=== PATIENT | female | born 1950 | race Caucasian/White ===

== ENCOUNTER → 2016-09-24 | Outpatient (CLI) | payer MEDICARE, OTHER ==
--- NOTE | 2016-09-24 22:15 | NM ---
EXAMINATION TYPE: NM hepatobiliary w EF DATE OF EXAM: 09/24/2016 5:11 PM COMPARISON: Prior HIDA scan June 21, 2020 pain HISTORY: Right upper quadrant pain per order. Abdominal pain with nausea, vomiting, and reflux-like s ymptoms per patient. TECHNIQUE: After the intravenous administration of 5.2 mCi Tc 99m Mebrofenin hepatobiliary scintigrap hy is performed. Immediate images post injection. FINDINGS: There is somewhat diffuse poor uptake of tracer by the liver. The gallbladder is visualized within 1 0 minutes. The small bowel activity is noted within 30 minutes. At one hour 8 ounces of oral ensure plus is given to mimic CCK and gallbladder ejection fraction is calculated at 82 %, not deviated fro m the normal range. Therefore there is no scintigraphic evidence of cystic or common bile duct obstr uction to suggest acute cholecystitis. IMPRESSION: Ejection fraction is 82%, similar to prior exam, some consider this abnormal or a hyperki netic response.
== END | disposition home or self-care (01) ==
LOC: RADNMMAIN 14:45
PROVIDERS: ATTEND Family Medicine
DX: R10.11 Right upper quadrant pain (principal)
CPT/HCPCS: 78226; A9537

== ENCOUNTER → 2016-10-10 | Outpatient (CLI) | payer MEDICARE, OTHER ==
--- NOTE | 2016-10-10 09:11 | MR ---
EXAMINATION TYPE: MR cervical spine wo con DATE OF EXAM: 10/10/2016 8:50 AM COMPARISON: Prior MR cervical spine 06 April 2013 HISTORY: Neck pain. left shoulder pain TECHNIQUE: Multiplanar, multisequence images of the cervical spine were acquired. C2-C3: No evidence for degenerative disc disease. No disc bulge/herniation or protrusion. No Canal stenosis. Foramina are patent bilaterally. C3-C4: No evidence for degenerative disc disease. No disc bulge/herniation or protrusion. No Canal stenosis. Foramina are patent bilaterally. C4-C5: Small posterior central disc protrusion causes mild anterior mass effect on the thecal sac C5-C6: Bilateral foraminal encroachment is present due to uncovertebral joint hypertrophy facet arthr opathy. Posterior extension of endplate disc complex and contact the anterior thecal sac and possibly the anterior cervical cord, small posterior disc protrusion is present. C6-C7: Small posterior central disc protrusion is present. C7-T1: No evidence for degenerative disc disease. No disc bulge/herniation or protrusion. No Canal stenosis. Foramina are patent bilaterally. Cervical segments are intact. There is normal alignment. Cervical spinal cord is of normal signal. Craniovertebral junction relationships are within normal limits. There is multilevel facet arthropa thy. There may be a thoracic scoliosis. IMPRESSION: Similar findings to prior exam. Degenerative disc disease, facet arthropathy, foraminal encroachment. Additional findings above.
== END | disposition home or self-care (01) ==
LOC: RADMRIMAIN 07:59
PROVIDERS: ATTEND Family Medicine
DX: M99.71 Connective tissue and disc stenosis of intervertebral foramina of cervical region (principal); M50.30 Other cervical disc degeneration, unspecified cervical region; M46.82 Other specified inflammatory spondylopathies, cervical region
CPT/HCPCS: 72141

== ENCOUNTER → 2017-01-19 | Outpatient (CLI) | payer MEDICARE, OTHER ==
--- NOTE | 2017-01-19 08:39 | US ---
EXAMINATION TYPE: US abdomen complete DATE OF EXAM: 01/19/2017 COMPARISON: NM CLINICAL HISTORY: RUQ Abdominal Pain R10.11. Intermittent RUQ pain and nausea x 6 months, obese patie nt EXAM MEASUREMENTS: Liver Length: 16.6 cm Gallbladder Wall: 0.2 cm CBD: 0.3 cm Spleen: 12.0 cm Right Kidney: 11.6 x 5.7 x 5.3 cm Left Kidney: 11.6 x 6.0 x 4.9 cm Pancreas: visualized portions wnl, head and tail limited by overlying midline bowel gas Liver: slightly course echotexture Gallbladder: wnl Evidence for sonographic Carey's sign: no CBD: visualized portions wnl, limited by overlying bowel gas Spleen: wnl Right Kidney: 0.7cm echogenic shadowing focus inferior pole Left Kidney: wnl Upper IVC: wnl Abd Aorta: visualized portions wnl, distal portion partially obscured by overlying midline bowel gas The visualized liver is heterogeneously hyperechoic. Evaluation for focal masses suboptimal due to th e heterogeneity. The intrahepatic portion of the IVC and visualized abdominal aorta are within normal limits. There is no evidence of shadowing mobile cholelithiasis. Common bile duct is unremarkable. The visualized portions of the pancreas are homogenous. The spleen is upper limits of normal in si ze. Kidneys are symmetric and free of hydronephrosis. No suspicious solid or cystic renal lesions a re seen. Nonspecific nonshadowing 7 mm focus right kidney could reflect nonobstructing calculus lower pole level centrally. IMPRESSION: Heterogeneous hyperechoic appearance of liver is likely on basis of diffuse fatty infiltr ation. No significant acute finding is seen to account for patient's symptoms of right upper quadrant pain.
== END | disposition home or self-care (01) ==
LOC: RADUSWWP 08:00
PROVIDERS: ATTEND Surgery
DX: R10.11 Right upper quadrant pain (principal)
CPT/HCPCS: 76700

== ENCOUNTER → 2018-02-11 | Outpatient (CLI) | payer MEDICARE, OTHER ==
--- NOTE | 2018-02-11 09:35 | CT ---
EXAMINATION TYPE: CT sinus wo con DATE OF EXAM: 02/11/2018 COMPARISON: NONE HISTORY: 68-year-old female sinus infections, pain for 3 months, Chronic sinusitis CT DLP: 622.3 mGycm Automated exposure control for dose reduction was used. TECHNIQUE: Noncontrast axial views of the paranasal sinuses were obtained. Coronal reconstructions pe rformed. 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 The right sphenoid sinus is also been opened up. There is some residual small ethmoid air cells and the middle portion that show opacification, refer to coronal image 18. This is a relatively small portion of the ethmoid air cells when referring to ax ial image 29. Otherwise, the frontal, maxillary, and sphenoid sinuses are clear and well pneumatized. There is no air-fluid level. Reactive chip- osteogenesis is not seen. There is no destruction of the osseous sunshine of the paranasal sinuses. THE NASAL CAVITY: The osteomeatal complexes are widely patent after sinonasal surgery. With very minimal bowing of the nasal septum towards the right. The imaged brain and orbits are normal in appearance. Hyperostosis frontalis interna normal variation . Mastoid air cells and middle ear cavities are well pneumatized. Reformatted images confirm above findings. IMPRESSION: Prior FESS with resection changes extending into the ethmoid air cells an opening of the right spheno id sinus. A few small residual mid ethmoid air cells remain on both sides and are opacified. There i s a relatively small portion of the ethmoid air cells. Otherwise, no paranasal sinus disease seen.
== END | disposition home or self-care (01) ==
LOC: RADCTMAIN 08:46
PROVIDERS: ATTEND Family Medicine
DX: J32.9 Chronic sinusitis, unspecified (principal)
CPT/HCPCS: 70486

== ENCOUNTER → 2018-03-05 | Outpatient (CLI) | payer MEDICARE, OTHER ==
--- NOTE | 2018-03-05 08:44 | CT ---
EXAMINATION TYPE: CT chest wo con DATE OF EXAM: 03/05/2018 COMPARISON: 12/02/2012 HISTORY: Interstitial lung disease, cough CT DLP: 656 mGycm. Automated Exposure Control for Dose Reduction was Utilized. TECHNIQUE: CT scan of the thorax is performed without IV contrast. FINDINGS: LUNGS: The previously seen 3 mm subpleural solid pulmonary nodule in the right middle lobe on the exa m of 12/02/2012 is stable in appearance and should be considered benign. This is seen on series 4 imag e 30. There is a basilar predominant subpleural reticular pattern that can relate to physiologic agin g or early NSIP. No interstitial edema, interseptal lobular thickening or honeycombing are seen. Retr ospectively there is a 2 mm subpleural pulmonary nodule seen more medially within the right middle lo be unchanged from 2013 and should also be considered benign on series 4 image 27. No new pulmonary no dule or mass is identified. Lungs are grossly clear. There is no pleural effusion or pneumothorax s een. The tracheobronchial tree is patent. MEDIASTINUM: Lack of IV contrast is noted to limit evaluation for mediastinal and especially hilar ad enopathy. There are no definitive greater than 1 cm hilar or mediastinal lymph nodes. No cardiomega ly or pericardial effusion is seen. Three-vessel coronary artery calcifications are moderate. Ascendi ng thoracic aorta and main pulmonary artery are within normal limits of size. OTHER: Visualized portions of the liver is diffusely hypoattenuated, most commonly related to hepati c steatosis. Mild multilevel degenerative changes of the thoracic spine are seen with multilevel vert ebral body hemangiomas. Solitary nonspecific sclerotic focus is seen of an upper thoracic vertebrae, possibly related to a bone island as no other suspicious osseous lesions are seen. IMPRESSION: 1. Very mild subpleural reticulation that could relate to normal aging process independent of smoking history, early NSIP, or atelectasis. No current findings of pulmonary fibrosis. 2. Subcentimeter right subpleural pulmonary nodules unchanged from 2013 and should be considered elaine gn. 3. Hepatic steatosis.
== END | disposition home or self-care (01) ==
LOC: RADCTMAIN 07:39
PROVIDERS: ATTEND Preventive Medicine Preventive Medicine/Occupational Environmental Medicine
DX: J84.9 Interstitial pulmonary disease, unspecified (principal); R91.8 Other nonspecific abnormal finding of lung field; Z87.891 Personal history of nicotine dependence
CPT/HCPCS: 71250

== ENCOUNTER → 2018-03-16 | Outpatient (CLI) | payer MEDICARE, OTHER ==
[2018-03-16 15:24] LABS: Blood Urea Nitrogen 12 mg/dL (7-17)
--- NOTE | 2018-03-16 17:29 | CT ---
EXAMINATION TYPE: CT abdomen w con DATE OF EXAM: 03/16/2018 COMPARISON: None INDICATION: Upper abdominal pain with nausea DLP: 1245 mGycm, Automated exposure control for dose reduction was used. CONTRAST: 100 mL of Isovue 300. Study performed with Oral Contrast TECHNIQUE: Axial images were obtained from above the diaphragm to the pubic rami in the axial plane a t 5 mm thick sections. Reconstructed images are reviewed on the computer in the coronal plane. FINDINGS: Limited CT sections are obtained the lung bases. The lung bases are clear. Coronary artery calcific ation is present. CT ABDOMEN: Liver: Enlarged wrapping around to the left diaphragm. Spleen: Normal Pancreas: Normal Adrenal glands: The adrenal glands are normal. Gallbladder: Normal Kidneys: No masses are evident. There is mild right hydronephrosis. Hydroureter is present. There is a calcification at the right ureteropelvic junction measuring 0.5 cm. Hydroureter extends out of the [id number]-bb-eavw. No cysts are present. Delayed images were obtained through the kidneys, which remain unremarkable. Aorta: Vascular calcification is within the aorta. Inferior vena cava: Normal. Loops of bowel is visualized. Normal. There are loops of bowel lacking oral contrast limiting their e valuation. IMPRESSIONS: 1. 0.5 cm right ureteral pelvic junction stone with mild right hydronephrosis. Right Hydroureter ext ends beyond the calcification and out of the takba-ev-naxw to pelvis.
== END | disposition home or self-care (01) ==
LOC: RADCTMAIN 14:41
PROVIDERS: ATTEND Surgery
DX: N13.2 Hydronephrosis with renal and ureteral calculous obstruction (principal)
CPT/HCPCS: 82565; 84520; 74160; 36415; Q9967

== ENCOUNTER → 2020-03-19 | Outpatient (CLI) | payer MEDICARE, OTHER ==
--- NOTE | 2020-03-20 09:04 | CT ---
EXAMINATION TYPE: CT chest abdomen wo con DATE OF EXAM: 03/19/2020 INDICATION: Exposure to mold/fungus, fatty liver COMPARISON: 03/16/2018 CT abdomen, 03/05/[address] DLP: 450.50 mGycm CONTRAST: Performed without Oral Contrast. No intravenous contrast was utilized. TECHNIQUE: Axial images at 5 mm thick sections. Reconstructed images in the coronal plane. Delayed images through the kidneys. FINDINGS: CT CHEST: Portion of the thyroid visualized is normal. There is a very subtle area of pneumonitis within the right anterior suprahilar region. Series 4 imag e 17. This is a change. Previous anterior right middle lobe infiltrates have resolved. There is a 0.6 cm peripheral right middle lobe nodularity present previously and appears stable. Tiny pleural-based calcification may be in the posterior left lung base. Series 4 image 43. No enlarged mediastinal or hilar adenopathy is evident. The ascending aorta diameter at the level of the main pulmonary artery is 3.3 cm. The main pulmonary artery diameter at the bifurcation is 2.5 cm. Tracheobronchial calcification is present. Dense coron fely artery calcifications present. CT ABDOMEN: Liver: Normal. Hepatic density is 56 Hounsfield units. Spleen comparison is 50 Hounsfield units. Find ings are not indicative of fatty infiltration at this time. Spleen: Normal Pancreas: Normal Adrenal glands: The adrenal glands are normal. Gallbladder: Normal Kidneys: No masses are evident. No hydronephrosis is present. No cysts are present. There is a 0.9 cm calcification within the lateral mid right kidney. A punctate calcification in the mid to inferio r pole left kidney measuring 0.3 cm. Aorta: Vascular calcification is within the aorta. Inferior vena cava: Normal. Loops of bowel within the abdomen and pelvis are normal. Study is without oral contrast limiting bowel evaluation. IMPRESSIONS: 1. Subtle area of pneumonitis right upper lobe. Remaining lung findings are stable. 2. No fatty infiltration liver. 3. Nonobstructing renal stones.
== END | disposition home or self-care (01) ==
LOC: RADCTMAIN 17:06
PROVIDERS: ATTEND Preventive Medicine Preventive Medicine/Occupational Environmental Medicine
DX: J18.9 Pneumonia, unspecified organism (principal); N20.0 Calculus of kidney
CPT/HCPCS: 71250; 74150

== ENCOUNTER → 2020-06-05 | Outpatient (CLI) | payer MEDICARE, OTHER ==
--- NOTE | 2020-06-05 15:22 | CT ---
EXAMINATION TYPE: CT chest wo con DATE OF EXAM: 06/05/2020 COMPARISON: Chest CT March 19, 2020 and older CTs. HISTORY: f/u pneumonitis. CT DLP: 747.7 mGycm. Automated Exposure Control for Dose Reduction was Utilized. TECHNIQUE: CT scan of the thorax is performed without IV contrast. High resolution CT with 1 mm sequ ences obtained at 10 mm intervals obtained in supine and prone positioning. FINDINGS: LUNGS: Exam is suboptimal in evaluating areas under 1 cm due to technique. No peripheral reticulation or fibrotic change. No bronchiectasis. No concerning masses. Prior visualized narrowing 1 cm right u pper lung pneumonitis not clearly seen on current study. No pleural effusion or pneumothorax noted. MEDIASTINUM: Lack of IV contrast is noted to limit evaluation for mediastinal and especially hilar a denopathy. There are no definitive greater than 1 cm hilar or mediastinal lymph nodes. No cardiomeg kayden or pericardial effusion is seen. Right coronary artery calcification and/or stent. OTHER: No additional significant abnormality is seen. IMPRESSION: No significant chronic pulmonary fibrotic change. No significant new or worsening acute p ulmonary process.
== END | disposition home or self-care (01) ==
LOC: RADCTMAIN 14:53
PROVIDERS: ATTEND Preventive Medicine Preventive Medicine/Occupational Environmental Medicine
DX: J67.9 Hypersensitivity pneumonitis due to unspecified organic dust (principal)
CPT/HCPCS: 71250

== ENCOUNTER → 2021-08-06 | Outpatient (CLI) | payer MEDICARE, OTHER ==
--- NOTE | 2021-08-06 09:24 | CT ---
EXAMINATION TYPE: CT chest wo con DATE OF EXAM: 08/06/2021 COMPARISON: CT chest June 05, 2020 and older studies. HISTORY: lung nodule CT DLP: 292.1 mGycm. Automated Exposure Control for Dose Reduction was Utilized. TECHNIQUE: CT scan of the thorax is performed without IV contrast. FINDINGS: LUNGS: Focal 4-6 mm subpleural parenchymal nodular scarring anterior right mid lung axial image 31 is stable back to 2018 consistent with postinflammatory scarring. No new greater than 5 mm noncalcifie d pulmonary nodules or masses. Background Mild underlying emphysematous change. There is no pleural effusion or pneumothorax seen. No new focal consolidation. The tracheobronchial tree is patent. MEDIASTINUM: Lack of IV contrast is noted to limit evaluation for mediastinal and especially hilar ad enopathy. There are no definitive greater than 1 cm new mediastinal lymph nodes. No cardiomegaly or pericardial effusion is seen. Moderate to severe three-vessel coronary artery calcification. OTHER: Mild multilevel anterior spurring. IMPRESSION: No new or enlarging greater than 5 mm pulmonary nodules.
== END | disposition home or self-care (01) ==
LOC: RADCTMAIN 07:04
PROVIDERS: ATTEND Internal Medicine Critical Care Medicine
DX: R91.1 Solitary pulmonary nodule (principal)
CPT/HCPCS: 71250

== ENCOUNTER 2021-12-02 12:38 | Inpatient (IN) | payer MEDICARE, OTHER ==
[2021-12-02] MEDS ORDERED: NITROGLYCERIN-D5W PMX 50 MG in DEXTROSE/WATER 1 250ML.BAG IV ONE ×2 (12:54→15:24)
[2021-12-02] MEDS ORDERED: HEPARIN SODIUM 1,000 UN/ML (10ML VL) IV ONE (12:54)
[2021-12-02 13:02] LABS: Anisocytosis Slight; Basophils # (A) 0.1 k/uL (0-0.2); Basophils % (A) 1 %; Eosinophils # (A) 0.5 k/uL (0-0.7); Eosinophils % (A) 5 %; HCT 32.8 % (34.0-46.0); HGB 10.1 gm/dL (11.4-16.0); Hypochromasia Moderate; Lymphocytes % (A) 38 %; MCH 20.3 pg (25.0-35.0); MCHC 30.7 g/dL (31.0-37.0); MCV 66.2 fL (80.0-100.0); Mean Platelet Volume 7.7; Microcytosis Marked; Monocytes # (A) 0.6 k/uL (0-1.0); Monocytes % (A) 5 %; Neutrophils % (A) 47 %; Platelet Count 261 k/uL (150-450); Poikilocytosis Slight; RBC 4.96 m/uL (3.80-5.40); RDW 17.7 % (11.5-15.5); WBC 10.6 k/uL (3.8-10.6)
[2021-12-02 13:12] LABS: INR 0.9 (<1.2); Partial Thromboplastin Time 22.9 sec (22.0-30.0); Prothrombin Time 10.4 sec (9.0-12.0)
--- NOTE | 2021-12-02 13:14 | ED ---
General Adult HPI - General Stated complaint: Cardiac Time Seen by Provider: 12/02/21 12:40 Source: patient, EMS, RN notes reviewed, old records reviewed Mode of arrival: EMS Limitations: no limitations - History of Present Illness Initial comments: This is a 71-year-old female who presents emergency Department complaining of some left-sided chest pain. Patient states she had a stent placed on Thursday was told she needed more stents. Patient states she had the exact same se nsation today that she had before except today she didn't vomit. Patient states she had the chest pain became very nauseous and then started having diarrhea which is similar symptoms that she had before. Patient denied any diaphoretic episodes patient denies any shortness of breath or difficulty breathing. Patient states 3 nitroglycerin and then eventually took away the pain. Patient states she is currently pain-free. - Related Data Home Medications Medication Instructions Recorded Confirmed Azelastine HCl 1 spray EA NOSTRIL BID PRN 11/26/21 11/26/21 Dulaglutide [Trulicity] 1.5 mg SQ FR 11/26/21 11/26/21 Empagliflozin [Jardiance] 25 mg PO DAILY 11/26/21 11/26/21 Ergocalciferol (Vitamin D2) 1,250 mcg PO Q7D 11/26/21 11/26/21 [Drisdol (50,000 Iu)] Fexofenadine HCl [Yael Allergy] 180 mg PO DAILY 11/26/21 11/26/21 Levothyroxine Sodium [Synthroid] 75 mcg PO DAILY 11/26/21 11/26/21 Montelukast [Singulair] 10 mg PO DAILY 11/26/21 11/26/21 Omeprazole 40 mg PO BID 11/26/21 11/26/21 PARoxetine HCL 60 mg PO DAILY 11/26/21 11/26/21 Pioglitazone HCl 15 mg PO DAILY 11/26/21 11/26/21 lisinopriL [Zestril] 5 mg PO DAILY 11/26/21 11/26/21 metFORMIN HCL ER [Glucophage XR] 500 mg PO BID 11/26/21 11/26/21 Previous Rx's Medication Instructions Recorded Aspirin 81 mg PO DAILY 90 Days #90 tab 11/28/21 Atorvastatin [Lipitor] 80 mg PO HS 90 Days #90 tab 11/28/21 Clopidogrel [Plavix] 75 mg PO DAILY 90 Days #90 tab 11/28/21 Losartan [Cozaar] 25 mg PO HS 60 Days #60 tab 11/28/21 Metoprolol Tartrate [Lopressor] 12.5 mg PO HS 90 Days #90 tab 11/28/21 Metoprolol Tartrate [Lopressor] 25 mg PO DAILY 90 Days #90 tab 11/28/21 Nitroglycerin Sl Tabs [Nitrostat] 0.4 mg SUBLINGUAL Q5M PRN #25 tab 11/28/21 Allergies Allergy/AdvReac Type Severity Reaction Status Date / Time morphine Allergy Swelling Verified 11/26/21 20:29 hydromorphone [From Dilaudid] AdvReac Hallucinati Verified 11/26/21 20:29 ons lorazepam [From Ativan] AdvReac Hallucinati Verified 11/26/21 20:29 ons Review of Systems ROS Statement: Those systems with pertinent positive or pertinent negative responses have been documented in the HPI. ROS Other: All systems not noted in ROS Statement are negative. Past Medical History Past Medical History: Diabetes Mellitus, Hyperlipidemia, Hypertension Additional Past Medical History / Comment(s): DM type 2, HTN, hyperlipidemia, hypothyroidism History of Any Multi-Drug Resistant Organisms: None Reported Past Surgical History: Back Surgery, Hysterectomy Additional Past Surgical History / Comment(s): Cataracts surgery in 2001, Carpal tunnel bilateral arms "in 1985" Partial hysterectomy 1979. Three back surgeries Additional Past Anesthesia/Blood Transfusion Reaction / Comment(s): Pt denies receiving blood transfusion Past Psychological History: Anxiety Smoking Status: Former smoker Past Alcohol Use History: None Reported Past Drug Use History: None Reported - Past Family History Mother Additional Family Medical History / Comment(s): Alpha1 Antitrypsin Deficiency Father Family Medical History: Congestive Heart Failure (CHF) Additional Family Medical History / Comment(s): Open heart surgery General Exam - General Exam Comments Initial Comments: GENERAL: Patient is well-developed and well-nourished. Patient is nontoxic and well- hydrated and is in mild distress. ENT: Neck is soft and supple. No significant lymphadenopathy is noted. Oropharynx is clear. Moist mucous membranes. Neck has full range of motion without eliciting any pain. EYES: The sclera were anicteric and conjunctiva were pink and moist. Extraocular movements were intact and pupils were equal round and reactive to light. Eyelids were unremarkable. PULMONARY: Unlabored respirations. Good breath sounds bilaterally. No audible rales rhonchi or wheezing was noted. CARDIOVASCULAR: There is a regular rate and rhythm without any murmurs gallops or rubs. ABDOMEN: Soft and nontender with normal bowel sounds. SKIN: Skin is clear with no lesions or rashes and otherwise unremarkable. NEUROLOGIC: Patient is alert and oriented x3. Cranial nerves II through XII are grossly intact. Motor and sensory are also intact. Normal speech, volume and content. Symmetrical smile. MUSCULOSKELETAL: Normal extremities with adequate strength and full range of motion. No lower extremity swelling or edema. No calf tenderness. LYMPHATICS: No significant lymphadenopathy is noted PSYCHIATRIC: Normal psychiatric evaluation. Limitations: no limitations Course Vital Signs 12/02/21 12/02/21 12:45 13:53 Temperature 98.2 F Pulse Rate 73 64 Respiratory 18 18 Rate Blood Pressure 141/82 126/58 O2 Sat by Pulse 94 L 95 Oximetry Medical Decision Making - Medical Decision Making EKG shows sinus rhythm at 67 bpm NJ interval 160 QRS is 75 QT interval 390 QTC is 414. Patient's EKG shows T-wave inversions in II, III, and F aVF as well as precordial leads V4 V5 and V6. I spoke with Dr. El as soon as the patient arrived to inform him of the second visit in a week. I spoke with Dr. Lin she agreed to admit the patient admitted the patient wrote admitting orders. Chest x-ray shows no acute abnormality. I started the patient on heparin and placed the patient on a nitroglycerin drip because she had relief after 3 total nitroglycerin sublingual tablets I continue the heparin nitro and aspirin on the floor. - Lab Data Result diagrams: 12/02/21 12:56 12/02/21 12:56 Lab Results 12/02/21 12/02/21 12/02/21 Range/Units 12:56 12:56 12:56 WBC 10.6 (3.8-10.6) k/uL RBC 4.96 (3.80-5.40) m/uL Hgb 10.1 L (11.4-16.0) gm/dL Hct 32.8 L (34.0-46.0) % MCV 66.2 L (80.0-100.0) fL MCH 20.3 L (25.0-35.0) pg MCHC 30.7 L (31.0-37.0) g/dL RDW 17.7 H (11.5-15.5) % Plt Count 261 (150-450) k/uL MPV 7.7 Neutrophils % 47 % Lymphocytes % 38 % Monocytes % 5 % Eosinophils % 5 % Basophils % 1 % Neutrophils # 5.0 (1.3-7.7) k/uL Lymphocytes # 4.0 (1.0-4.8) k/uL Monocytes # 0.6 (0-1.0) k/uL Eosinophils # 0.5 (0-0.7) k/uL Basophils # 0.1 (0-0.2) k/uL Hypochromasia Moderate Poikilocytosis Slight Anisocytosis Slight Microcytosis Marked PT 10.4 (9.0-12.0) sec INR 0.9 (<1.2) APTT 22.9 (22.0-30.0) sec Sodium 139 (137-145) mmol/L Potassium 3.9 (3.5-5.1) mmol/L Chloride 106 (98-107) mmol/L Carbon Dioxide 27 (22-30) mmol/L Anion Gap 6 mmol/L BUN 13 (7-17) mg/dL Creatinine 0.66 (0.52-1.04) mg/dL Est GFR (CKD-EPI)AfAm >90 (>60 ml/min/1.73 sqM) Est GFR (CKD-EPI)NonAf 89 (>60 ml/min/1.73 sqM) Glucose 119 H (74-99) mg/dL Calcium 8.8 (8.4-10.2) mg/dL Magnesium 1.7 (1.6-2.3) mg/dL Total Bilirubin 0.8 (0.2-1.3) mg/dL AST 32 (14-36) U/L ALT 21 (4-34) U/L Alkaline Phosphatase 59 (38-126) U/L Troponin I (0.000-0.034) ng/mL Total Protein 7.2 (6.3-8.2) g/dL Albumin 3.9 (3.5-5.0) g/dL 12/02/21 Range/Units 12:56 WBC (3.8-10.6) k/uL RBC (3.80-5.40) m/uL Hgb (11.4-16.0) gm/dL Hct (34.0-46.0) % MCV (80.0-100.0) fL MCH (25.0-35.0) pg MCHC (31.0-37.0) g/dL RDW (11.5-15.5) % Plt Count (150-450) k/uL MPV Neutrophils % % Lymphocytes % % Monocytes % % Eosinophils % % Basophils % % Neutrophils # (1.3-7.7) k/uL Lymphocytes # (1.0-4.8) k/uL Monocytes # (0-1.0) k/uL Eosinophils # (0-0.7) k/uL Basophils # (0-0.2) k/uL Hypochromasia Poikilocytosis Anisocytosis Microcytosis PT (9.0-12.0) sec INR (<1.2) APTT (22.0-30.0) sec Sodium (137-145) mmol/L Potassium (3.5-5.1) mmol/L Chloride (98-107) mmol/L Carbon Dioxide (22-30) mmol/L Anion Gap mmol/L BUN (7-17) mg/dL Creatinine (0.52-1.04) mg/dL Est GFR (CKD-EPI)AfAm (>60 ml/min/1.73 sqM) Est GFR (CKD-EPI)NonAf (>60 ml/min/1.73 sqM) Glucose (74-99) mg/dL Calcium (8.4-10.2) mg/dL Magnesium (1.6-2.3) mg/dL Total Bilirubin (0.2-1.3) mg/dL AST (14-36) U/L ALT (4-34) U/L Alkaline Phosphatase (38-126) U/L Troponin I 0.064 H* (0.000-0.034) ng/mL Total Protein (6.3-8.2) g/dL Albumin (3.5-5.0) g/dL Critical Care Time Critical Care Time: Yes Total Critical Care Time: 35 Disposition Clinical Impression: Unstable angina Disposition: ADMITTED IP TO THIS HOSP Referrals: Víctor Salamanca MD [Primary Care Provider] - 1-2 days Time of Disposition: 13:57
[2021-12-02 13:15] LABS: ALT 21 U/L (4-34); AST 32 U/L (14-36); African American GFR (CKD) >90 (>60 ml/min/1.73 sqM); Albumin 3.9 g/dL (3.5-5.0); Alkaline Phosphatase 59 U/L (38-126); Anion Gap 6 mmol/L; Blood Urea Nitrogen 13 mg/dL (7-17); Calcium 8.8 mg/dL (8.4-10.2); Carbon Dioxide 27 mmol/L (22-30); Chloride 106 mmol/L (98-107); Glucose 119 mg/dL (74-99); Magnesium 1.7 mg/dL (1.6-2.3); Non-African American GFR(CKD) 89 (>60 ml/min/1.73 sqM); Potassium 3.9 mmol/L (3.5-5.1); Sodium 139 mmol/L (137-145); Total Bilirubin 0.8 mg/dL (0.2-1.3); Total Protein 7.2 g/dL (6.3-8.2)
[2021-12-02] MEDS ORDERED: HEPARIN SOD,PORK IN 0.45% NACL 25,000 UNIT in 0.45% NACL 1 250ML.BAG IV SCH (13:15)
[2021-12-02] MEDS ORDERED: NITROGLYCERIN SL TABS 0.4 MG TAB SUBLINGUAL PRN ×2 (13:58→17:32)
--- NOTE | 2021-12-02 14:01 | XR ---
EXAMINATION TYPE: XR chest 2V DATE OF EXAM: 12/02/2021 COMPARISON: 11/26/2021 HISTORY: Shortness of breath TECHNIQUE: Frontal and lateral views of the chest are obtained. FINDINGS: Scattered senescent parenchymal changes noted. Hyperinflation compatible with COPD. No evidence for infiltrate. No evidence for atelectasis. Heart size is stable. Mediastinal structures are stable and grossly unremarkable. No evidence for hilar prominence. Degenerative changes dorsal spine. IMPRESSION: 1. No evidence for acute pulmonary disease.
[2021-12-02 16:53] LABS: Glucose,Whole Blood 124 mg/dL (75-99)
[2021-12-02] MEDS ORDERED: AZELASTINE 137MCG/SPRAY EA NOSTRIL PRN (17:32)
--- NOTE | 2021-12-02 17:51 | P.HPIM ---
History of Present Illness H&P Date: 12/02/21 History of Presenting Illness: Patient is a very pleasant 71-year-old female with a past medical history of CAD with recent STEMI resulting in stent placement to RCA on 11/26/21, hypertension, hyperlipidemia, hypothyroidism, and [id number] diabetes mellitus type 2. She presented to the emergency department with a chief complaint of chest pain. Patient reports pain to left anterior chest radiating beneath her left breast. She reports this is the exact same sensation she felt with previous [place] with the exception of vomiting. Patient states that she was at the drugstore when she simply overall did not feel well. Patient reports she just felt generally ill to the point that she needed to sit down and she has never done this before. Patient states after sitting down she began to notice she felt very nauseous and began experiencing pain to the left side of her chest radiating beneath her left breast. Patient reports after taking 3 nitroglycerin tablets, her pain finally subsided. Patient presented to the emergency department secondary to concerns of this pain and understanding that she needs additional stents placed. Cardiac cath completed 11/26/21 revealed three-vessel coronary artery disease with severe stenotic lesions in the right coronary art david with tentative plan for patient to undergo scheduled angioplasty of the ramus intermedius in LAD on outpatient basis. Patient currently reports pain remains resolved since taking her third nitro. Patient denies having any headache, lightheadedness, dizziness, palpitations, shortness of breath, dyspnea with exertion, nausea, neck pain, jaw pain, shoulder pain, back pain, or experiencing any numbness/tingling/weakness/swelling in her extremities. Patient underwent full evaluation in the emergency department. She was found to have an elevated troponin of 0.064, it is unclear if this is still elevated from previous STEMI or if this is a new elevation. EKG revealing sinus rhythm with new onset T-wave inversion in leads II, III, aVF, V3, V4, V5, and V6. Chest x- ray negative for acute cardiopulmonary process. Patient started on IV heparin and nitro infusion and admitted under our services with consultation to cardiology. Review of systems: Pertinent positives and negatives as discussed in HPI, a complete review of systems was performed and all other systems are negative. Physical exam: Vital signs reviewed and stable. General: Nontoxic, no distress and appears stated age. Derm: Skin warm and dry, normal coloration for ethnicity. Head: Atraumatic, normocephalic and symmetric. Eyes: EOMs intact, no lid lag, and anicteric sclera Mouth: no lip lesions, mucus membranes moist Cardiovascular: regular rate and rhythm with normal S1S2, no murmur, positive posterior tibial pulses bilaterally, and cap refill < 2 seconds. Lungs: Respirations even, regular, and unlabored on room air. Lungs CTA bilaterally, no rhonchi, no rales, no wheezing, and no accessory muscle usage. Abdominal: soft, nontender to palpation, no guarding, no appreciable organomegaly Ext: ROM intact. No gross muscle atrophy, no edema, no contractures Neuro: Speech clear, face symmetrical and CN II-XII grossly intact with no noted focal neuro deficits Psych: Alert and oriented to person, place, time, and situation. Appropriate and pleasant affect. Assessment and Plan of Care: Unstable angina status post recent RCA stent placement in patient with known three-vessel coronary artery disease Chest pain, rule out acute coronary event -Cardiology consult, appreciate further recommendations -Telemetry monitoring -Trend troponins -Cardiac diet, NPO at midnight -Aspirin, Plavix, atorvastatin, and metoprolol -Continuation of heparin and nitro infusion. -Echocardiogram completed 11/27/21 revealed an EF between 50 and 55% with left ventricular hypokinesis. Will defer to cardiology if they want to repeat echocardiogram. Hypertension Monitor vital signs and continue daily medication regimen with metoprolol and lisinopril Hyperlipidemia Continue daily medication regimen with atorvastatin 80 mg daily. Hypothyroidism Continue daily medication regimen with levothyroxine sodium 75 g daily. The patient is admitted with an anticipated greater than 2 midnight stay for evaluation of unstable angina CODE STATUS: Full code DVT prophylaxis: Heparin infusion Discussed with: patient, patient's , and patient's daughter at bedside Anticipated discharge date: clinical course to determine Anticipated discharge place: : Home A total of 45 minutes was spent on the care of this complex patient more than 50% of the time was spent in counseling and care coordination. aPul Rajput NP rendered care for this patient independently, reviewed the findings and plan as documented in the note above. I did not physically speak with or examine the patient on this date. Past Medical History Past Medical History: Diabetes Mellitus, Hyperlipidemia, Hypertension Additional Past Medical History / Comment(s): DM type 2, HTN, hyperlipidemia, hypothyroidism History of Any Multi-Drug Resistant Organisms: None Reported Past Surgical History: Back Surgery, Hysterectomy Additional Past Surgical History / Comment(s): Cataracts surgery in 2001, Carpal tunnel bilateral arms "in 1985" Partial hysterectomy 1979. Three back surgeries Additional Past Anesthesia/Blood Transfusion Reaction / Comment(s): Pt denies receiving blood transfusion Past Psychological History: Anxiety Smoking Status: Former smoker Past Alcohol Use History: None Reported Past Drug Use History: None Reported - Past Family History Mother Additional Family Medical History / Comment(s): Alpha1 Antitrypsin Deficiency Father Family Medical History: Congestive Heart Failure (CHF) Additional Family Medical History / Comment(s): Open heart surgery Medications and Allergies Home Medications Medication Instructions Recorded Confirmed Type Azelastine HCl 1 spray EA NOSTRIL BID PRN 11/26/21 12/02/21 History Dulaglutide [Trulicity] 1.5 mg SQ FR 11/26/21 12/02/21 History Empagliflozin [Jardiance] 25 mg PO DAILY 11/26/21 12/02/21 History Ergocalciferol (Vitamin D2) 1,250 mcg PO Q7D 11/26/21 12/02/21 History [Drisdol (50,000 Iu)] Fexofenadine HCl [Yael Allergy] 180 mg PO DAILY 11/26/21 12/02/21 History Levothyroxine Sodium [Synthroid] 75 mcg PO DAILY 11/26/21 12/02/21 History Montelukast [Singulair] 10 mg PO DAILY 11/26/21 12/02/21 History Omeprazole 40 mg PO BID 11/26/21 12/02/21 History PARoxetine HCL 60 mg PO DAILY 11/26/21 12/02/21 History Pioglitazone HCl 15 mg PO DAILY 11/26/21 12/02/21 History lisinopriL [Zestril] 5 mg PO DAILY 11/26/21 12/02/21 History metFORMIN HCL ER [Glucophage XR] 500 mg PO BID 11/26/21 12/02/21 History Aspirin 81 mg PO DAILY 90 Days #90 tab 11/28/21 12/02/21 Rx Clopidogrel [Plavix] 75 mg PO DAILY 90 Days #90 tab 11/28/21 12/02/21 Rx Metoprolol Tartrate [Lopressor] 12.5 mg PO HS 90 Days #90 tab 11/28/21 12/02/21 Rx Metoprolol Tartrate [Lopressor] 25 mg PO DAILY 90 Days #90 tab 11/28/21 12/02/21 Rx Nitroglycerin Sl Tabs [Nitrostat] 0.4 mg SUBLINGUAL Q5M PRN #25 tab 11/28/21 12/02/21 Rx Atorvastatin [Lipitor] 80 mg PO DAILY 12/02/21 12/02/21 History Allergies Allergy/AdvReac Type Severity Reaction Status Date / Time morphine Allergy Swelling Verified 12/02/21 15:45 hydromorphone [From Dilaudid] AdvReac Hallucinati Verified 12/02/21 15:45 ons lorazepam [From Ativan] AdvReac Hallucinati Verified 12/02/21 15:45 ons Physical Exam Osteopathic Statement: *. No significant issues noted on an osteopathic structural exam other than those noted in the History and Physical/Consult. Vitals: Vital Signs Temp Pulse Resp BP Pulse Ox 12/02/21 15:40 75 18 130/65 94 L 12/02/21 13:53 64 18 126/58 95 12/02/21 12:45 98.2 F 73 18 141/82 94 L Intake and Output 12/02/21 12/02/21 12/02/21 06:59 14:59 22:59 Other: Weight 74.389 kg Results CBC & Chem 7: 12/02/21 12:56 12/02/21 12:56 Labs: Abnormal Lab Results - Last 24 Hours (Table) 12/02/21 12/02/21 12/02/21 Range/Units 12:56 12:56 12:56 Hgb 10.1 L (11.4-16.0) gm/dL Hct 32.8 L (34.0-46.0) % MCV 66.2 L (80.0-100.0) fL MCH 20.3 L (25.0-35.0) pg MCHC 30.7 L (31.0-37.0) g/dL RDW 17.7 H (11.5-15.5) % Glucose 119 H (74-99) mg/dL POC Glucose (mg/dL) (75-99) mg/dL Troponin I 0.064 H* (0.000-0.034) ng/mL 12/02/21 12/02/21 Range/Units 16:06 16:45 Hgb (11.4-16.0) gm/dL Hct (34.0-46.0) % MCV (80.0-100.0) fL MCH (25.0-35.0) pg MCHC (31.0-37.0) g/dL RDW (11.5-15.5) % Glucose (74-99) mg/dL POC Glucose (mg/dL) 124 H (75-99) mg/dL Troponin I 0.078 H* (0.000-0.034) ng/mL
[2021-12-02] MEDS ORDERED: NITROGLYCERIN OINT 1 INCH/GM PACKET TOPICAL SCH (18:00)
[2021-12-02 19:03] LABS: Glucose,Whole Blood 140 mg/dL (75-99)
[2021-12-02] MEDS: METOPROLOL TARTRATE 12.5 MG TAB PO SCH (21:57)
[2021-12-03] MEDS: ACETAMINOPHEN TAB 325 MG TAB PO PRN ×2 (03:30→09:16)
[2021-12-03 05:37] LABS: Glucose,Whole Blood 124 mg/dL (75-99)
[2021-12-03] MEDS: ASPIRIN 81 MG PO SCH (06:32)
[2021-12-03] MEDS: CLOPIDOGREL 75 MG TAB PO SCH (06:33)
[2021-12-03] MEDS: PARoxetine 20 MG TAB PO SCH (06:33)
[2021-12-03] MEDS: MONTELUKAST 10 MG TAB PO SCH (06:33)
[2021-12-03] MEDS: LEVOTHYROXINE 75 MCG TAB PO SCH (06:33)
[2021-12-03] MEDS: METOPROLOL TARTRATE 25 MG TAB PO SCH (06:33)
[2021-12-03] MEDS: lisinopriL 5 MG TAB PO SCH (06:33)
[2021-12-03] MEDS: ATORVASTATIN 80 MG TAB PO SCH (06:33)
[2021-12-03] MEDS ORDERED: ASPIRIN 325 MG TAB PO SCH (09:00)
[2021-12-03] MEDS ORDERED: ERGOCALCIFEROL 1,250 MCG (50,000 IU) CAPSULE PO SCH (09:00)
[2021-12-03 09:50] LABS: Chol/HDL Ratio 3.64 Ratio; LDL Cholesterol,Calculated 21.1 mg/dL (0.0-131.0)
[2021-12-03 11:50] LABS: Glucose,Whole Blood 182 mg/dL (75-99)
--- NOTE | 2021-12-03 12:02 | P.CONS ---
History of Present Illness - Reason for Consult Consult date: 12/03/21 abdominal pain, diarrhea Requesting physician: Bailey Lacey - Chief Complaint Chest pain - History of Present Illness Assessment 71-year-old female who presented to the emergency department yesterday with complaints of left-sided chest pain that radiated underneath her breast bone with symptoms of diaphoresis and nausea and vomiting along with one episode of diarrhea. Patient had similar symptoms last week and was brought in by EMS and was an STEMI with 2 cardiac stents placed. The patient states she felt the same as previous when she had her heart attack. She went to the emergency department for further evaluation. She states she still has some mild discomfort of the pain in her left rib cage as well as flank area. She states she does have some issues with lactose and will often have some nausea and diarrhea related to it. She has seen Dr. Hess and Dr. Mccormick in the past, states that she had a colonoscopy several years ago in an EGD 1-2 years ago for issues with coughing. She states that she has a history of colitis and had been following with Dr. Hess at that time. She denies any blood in her stool. She states she only had one episode of emesis which was bile in color. She's had no further diarrhea, nausea, or vomiting today. She's been afebrile. Chest x-ray unremarkable. WBC 10.6 hemoglobin 10.1 hematocrit 32.8 platelet count 261,000 INR 0.9 total bilirubin 0.8 AST 32 ALT 21 alkaline phosphatase 59, troponin elevated 0.075 Review of Systems REVIEW OF SYSTEMS: CARDIOPULMONARY: No chest pain or shortness of breath. Gastrointestinal: Left flank and upper abdominal pain, bloating the breast bone. One episode of vomiting yesterday as well as diarrhea.. No hematemesis, coffee-ground emesis. No rectal bleeding, or melena. GENITOURINARY: No dysuria or hematuria. MUSCULOSKELETAL: Reports normal range of motion., Joint pain. SKIN: No rashes. No jaundice. ENDOCRINE: No chills, fevers. No excessive weight gain or loss. No polydipsia or polyuria. PSYCHIATRIC: Unremarkable. NEUROLOGY: No change in mental status. Denies dizziness, headache. ENT: Vision unremarkable. CONSTITUTIONAL: No recent weight loss. No fever, chills, night sweats. Past Medical History Past Medical History: Diabetes Mellitus, Hyperlipidemia, Hypertension Additional Past Medical History / Comment(s): DM type 2, HTN, hyperlipidemia, hypothyroidism History of Any Multi-Drug Resistant Organisms: None Reported Past Surgical History: Back Surgery, Hysterectomy Additional Past Surgical History / Comment(s): Cataracts surgery in 2001, Carpal tunnel bilateral arms "in 1985" Partial hysterectomy 1979. Three back surgeries Additional Past Anesthesia/Blood Transfusion Reaction / Comm: Pt denies receiving blood transfusion Past Psychological History: Anxiety Smoking Status: Former smoker Past Alcohol Use History: None Reported Past Drug Use History: None Reported - Past Family History Mother Additional Family Medical History / Comment(s): Alpha1 Antitrypsin Deficiency Father Family Medical History: Congestive Heart Failure (CHF) Additional Family Medical History / Comment(s): Open heart surgery Medications and Allergies Home Medications Medication Instructions Recorded Confirmed Type Azelastine HCl 1 spray EA NOSTRIL BID PRN 11/26/21 12/02/21 History Dulaglutide [Trulicity] 1.5 mg SQ FR 11/26/21 12/02/21 History Empagliflozin [Jardiance] 25 mg PO DAILY 11/26/21 12/02/21 History Ergocalciferol (Vitamin D2) 1,250 mcg PO Q7D 11/26/21 12/02/21 History [Drisdol (50,000 Iu)] Fexofenadine HCl [Yael Allergy] 180 mg PO DAILY 11/26/21 12/02/21 History Levothyroxine Sodium [Synthroid] 75 mcg PO DAILY 11/26/21 12/02/21 History Montelukast [Singulair] 10 mg PO DAILY 11/26/21 12/02/21 History Omeprazole 40 mg PO BID 11/26/21 12/02/21 History PARoxetine HCL 60 mg PO DAILY 11/26/21 12/02/21 History Pioglitazone HCl 15 mg PO DAILY 11/26/21 12/02/21 History lisinopriL [Zestril] 5 mg PO DAILY 11/26/21 12/02/21 History metFORMIN HCL ER [Glucophage XR] 500 mg PO BID 11/26/21 12/02/21 History Aspirin 81 mg PO DAILY 90 Days #90 tab 11/28/21 12/02/21 Rx Clopidogrel [Plavix] 75 mg PO DAILY 90 Days #90 tab 11/28/21 12/02/21 Rx Metoprolol Tartrate [Lopressor] 12.5 mg PO HS 90 Days #90 tab 11/28/21 12/02/21 Rx Metoprolol Tartrate [Lopressor] 25 mg PO DAILY 90 Days #90 tab 11/28/21 12/02/21 Rx Nitroglycerin Sl Tabs [Nitrostat] 0.4 mg SUBLINGUAL Q5M PRN #25 tab 11/28/21 12/02/21 Rx Atorvastatin [Lipitor] 80 mg PO DAILY 12/02/21 12/02/21 History Allergies Allergy/AdvReac Type Severity Reaction Status Date / Time morphine Allergy Swelling Verified 12/02/21 15:45 hydromorphone [From Dilaudid] AdvReac Hallucinati Verified 12/02/21 15:45 ons lorazepam [From Ativan] AdvReac Hallucinati Verified 12/02/21 15:45 ons Physical Exam Vitals: Vital Signs Temp Pulse Pulse Resp BP BP Pulse Ox 12/03/21 08:00 98.2 F 63 18 138/62 94 L 12/03/21 04:00 98.2 F 77 18 120/65 92 L 12/03/21 02:00 72 16 12/03/21 00:00 98.2 F 72 16 131/63 93 L 12/02/21 20:00 98.0 F 74 16 156/72 94 L 12/02/21 16:00 97.6 F 74 16 142/61 97 12/02/21 15:40 75 18 130/65 94 L 12/02/21 13:53 64 18 126/58 95 12/02/21 12:45 98.2 F 73 18 141/82 94 L Intake and Output 12/02/21 12/03/21 12/03/21 22:59 06:59 14:59 Intake Total 315.88 52.071 Balance 315.88 52.071 Intake: Intake, IV Titration 75.88 52.071 Amount Heparin Sod,Pork in 0.45% 75.88 52.071 NaCl 25,000 unit In 0.45 % NaCl 1 250ml.bag @ 12 UNITS/KG/HR 8.927 mls/hr IV .Q24H LAMBERTO Rx#: [id number] Oral 240 Other: # Voids 1 Weight 74.389 kg General appearance: The patient is alert, oriented, appears in no acute distress. HET: Head is normocephalic and atraumatic. Conjunctiva pink. Sclera anicteric. Neck: Supple without lymphadenopathy. Abdomen: Soft, mild tenderness left upper quadrant, flank region. Nondistended with bowel sounds. No guarding or rigidity. Extremities: Normal skin color and turgor. No pedal edema Skin: No rashes, no jaundice Neurological: No focal deficits. Alert and oriented x 3. Results CBC & Chem 7: 12/02/21 12:56 12/02/21 12:56 Labs: Abnormal Lab Results - Last 24 Hours (Table) 12/02/21 12/02/21 12/02/21 Range/Units 12:56 12:56 12:56 Hgb 10.1 L (11.4-16.0) gm/dL Hct 32.8 L (34.0-46.0) % MCV 66.2 L (80.0-100.0) fL MCH 20.3 L (25.0-35.0) pg MCHC 30.7 L (31.0-37.0) g/dL RDW 17.7 H (11.5-15.5) % APTT (22.0-30.0) sec Glucose 119 H (74-99) mg/dL POC Glucose (mg/dL) (75-99) mg/dL Troponin I 0.064 H* (0.000-0.034) ng/mL Triglycerides (0.00-149.00) mg/dL VLDL Cholesterol, Calc (5.00-40.00) mg/dL HDL Cholesterol (40.00-60.00) mg/dL 12/02/21 12/02/21 12/02/21 Range/Units 16:06 16:45 18:34 Hgb (11.4-16.0) gm/dL Hct (34.0-46.0) % MCV (80.0-100.0) fL MCH (25.0-35.0) pg MCHC (31.0-37.0) g/dL RDW (11.5-15.5) % APTT (22.0-30.0) sec Glucose (74-99) mg/dL POC Glucose (mg/dL) 124 H (75-99) mg/dL Troponin I 0.078 H* 0.075 H* (0.000-0.034) ng/mL Triglycerides (0.00-149.00) mg/dL VLDL Cholesterol, Calc (5.00-40.00) mg/dL HDL Cholesterol (40.00-60.00) mg/dL 12/02/21 12/02/21 12/03/21 Range/Units 19:01 20:32 02:38 Hgb (11.4-16.0) gm/dL Hct (34.0-46.0) % MCV (80.0-100.0) fL MCH (25.0-35.0) pg MCHC (31.0-37.0) g/dL RDW (11.5-15.5) % APTT 35.2 H (22.0-30.0) sec Glucose (74-99) mg/dL POC Glucose (mg/dL) 140 H (75-99) mg/dL Troponin I (0.000-0.034) ng/mL Triglycerides 315.00 H (0.00-149.00) mg/dL VLDL Cholesterol, Calc 63.00 H (5.00-40.00) mg/dL HDL Cholesterol 31.90 L (40.00-60.00) mg/dL 12/03/21 12/03/21 12/03/21 Range/Units 02:38 05:36 08:35 Hgb (11.4-16.0) gm/dL Hct (34.0-46.0) % MCV (80.0-100.0) fL MCH (25.0-35.0) pg MCHC (31.0-37.0) g/dL RDW (11.5-15.5) % APTT 38.6 H 48.7 H (22.0-30.0) sec Glucose (74-99) mg/dL POC Glucose (mg/dL) 124 H (75-99) mg/dL Troponin I (0.000-0.034) ng/mL Triglycerides (0.00-149.00) mg/dL VLDL Cholesterol, Calc (5.00-40.00) mg/dL HDL Cholesterol (40.00-60.00) mg/dL Comments: Chest x-ray shows no evidence of acute pulmonary disease. Assessment and Plan (1) Left upper quadrant abdominal pain Narrative/Plan: This is a 71-year-old female who presented to the emergency department with complaints of left-sided chest pain that radiated underneath her breast bone and to her flank region followed by episode of nausea vomiting and diarrhea. Patient had similar symptoms a week ago and came in as an STEMI and underwent placement of 2 cardiac stents. Patient states yesterday when she was at the grocery store the same feelings presented as a week ago and she thought she was having another heart attack. She denies any further diarrhea and nausea, vomiting however states she does still have some mild discomfort underneath the left breast bone. She states she does have a history of colitis related to eating vegetables as well as lactose intolerant. She recently underwent an EGD in the last 1-2 years done at [facility]. Last colonoscopy was several years ago Dr. Hess. Cardiology has seen patient she did have elevated troponin. Patient states they told her they thought she had a vasovagal response and not cardiac related. At this time patient is feeling better. Will continue to monitor, continue protonix. Labs were unremarkable. Patient did have elevation in her t roponin however that is trending down per cardiology. Symptoms are improving. Unknown etiology of left upper quadrant pain. Current Visit: Yes Status: Acute Code(s): R10.12 - LEFT UPPER QUADRANT PAIN SNOMED Code(s): 485217476 (2) Chest pain Current Visit: Yes Status: Acute Code(s): R07.9 - CHEST PAIN, UNSPECIFIED SNOMED Code(s): 04508374 Plan: 1. Continue symptomatic and supportive care 2. Continue recommendations from cardiology 3. Continue Protonix 40 mg twice a day 4. Diet as tolerated 5. No plans on endoscopic evaluation Thank you for this consultation, we'll continue to follow. Dr. Roxanne Mccormick I agree with the dictator's note, documented as a scribe by Patricia Schreiber.
--- NOTE | 2021-12-03 12:13 | P.CRDCN ---
History of Present Illness Consult date: 12/03/21 History of present illness: HISTORY OF PRESENT ILLNESS: This is a 71 year old female with a past medical history significant for hypertension, hyperlipidemia, diabetes, hypothyroidism, and coronary artery disease. Patient follows in the office with Dr. Shay. We have been asked to see the patient in consultation for abnormal troponins. Patient examined at the bedside. Patient was admitted to the hospital last week secondary to STEMI. She underwent cardiac cath and PCI to the RCA. The patient was also found to have a 60-70% stenosis of the mid LAD and 70% stenosis of the ramus intermedius. The patient presented to the hospital yesterday with complaints of left-sided abdominal pain. She denies having any chest pain or pressure. She denies having any shortness of breath. She reports having nausea and diarrhea at home. She denied any diaphoresis. * EKG reveals sinus mechanism with T wave inversions in inferior leads, V3-V6. * Chest xray no evidence for acute pulmonary disease * Laboratory data: WBC 10.6. Hemoglobin 10.1. Platelet count 261. Sodium 139. Potassium 3.9. BUN 13. Creatinine 0.66. troponin 0.064. 0.078. 0.075. These are trending downward from last week with a troponin peak of 1.300 * Current home cardiac medications include aspirin 81 mg daily, Lipitor 80 mg daily, Plavix 75 mg daily, metoprolol tartrate 25 mg daily, lisinopril 5 mg daily, and metoprolol tartrate 12.5 mg at night. * Most recent echocardiogram obtained in November 2021 revealed ejection fraction 50-55%, basal inferior LV wall hypokinesis, basal inferior septal LV wall hypokinesis, mild mitral regurgitation REVIEW OF SYSTEMS: At the time of my exam: CONSTITUTIONAL: Denies fever or chills. HEENT: Denies blurred vision, vision changes, or eye pain. Denies hemoptysis CARDIOVASCULAR: Denies chest pain. Denies orthopnea. Denies PND. Denies palpitations RESPIRATORY: Denies shortness of breath. GASTROINTESTINAL: Denies abdominal pain. Denies nausea or vomiting. HEMATOLOGIC: Denies bleeding disorders. GENITOURINARY: Denies any blood in urine. SKIN: Denies pruitis. Denies rash. PHYSICAL EXAM: VITAL SIGNS: Reviewed. GENERAL: Well-developed in no acute distress. HEENT: Head is normocephalic. Pupils are equal, round. Sclerae anicteric. Mucous membranes of the mouth are moist. Neck supple. No JVD or thyromegaly LUNGS: Respirations even and unlabored. Lungs essentially clear to auscultation bilaterally. HEART: Regular rate and rhythm. S1 and S2 heard. ABDOMEN: Soft. Nondistended. Nontender. EXTREMITIES: Normal range of motion. No clubbing or cyanosis. Peripheral pulses intact. No lower extremity edema NEUROLOGIC: Awake and alert. Oriented x 3. ASSESSMENT: Left sided abdominal pain, nausea, diarrhea Chest pain, ruled out, patient denies having chest pain Coronary artery disease with recent stent placement to the RCA with known lesions of the ramus intermedius and LAD Hypertension Hyperlipidemia Diabetes Hypothyroidism PLAN: An acute coronary event has been ruled out. Patients troponins are trending down from her STEMI last week. Dr. El spoke with Dr. Balderas who stated intervention of the patients other blockages would be difficult and recommended medical management if possible. Blockages are thought to be chronic and not causing the patients symptoms. Dr. El believes the patient may be experiencing vasovagal syncope/presyncope at home. Discontinue IV heparin and IV nitro. Continue home cardiac medications. Consult GI for evaluation of abdominal pain and diarrhea. Further recommendations pending patient course. Nurse practitioner note has been reviewed by physician. Signing provider agrees with the documented findings, assessment, and plan of care. Past Medical History Past Medical History: Diabetes Mellitus, Hyperlipidemia, Hypertension Additional Past Medical History / Comment(s): DM type 2, HTN, hyperlipidemia, hypothyroidism History of Any Multi-Drug Resistant Organisms: None Reported Past Surgical History: Back Surgery, Hysterectomy Additional Past Surgical History / Comment(s): Cataracts surgery in 2001, Carpal tunnel bilateral arms "in 1985" Partial hysterectomy 1979. Three back surgeries Additional Past Anesthesia/Blood Transfusion Reaction / Comment(s): Pt denies receiving blood transfusion Past Psychological History: Anxiety Smoking Status: Former smoker Past Alcohol Use History: None Reported Past Drug Use History: None Reported - Past Family History Mother Additional Family Medical History / Comment(s): Alpha1 Antitrypsin Deficiency Father Family Medical History: Congestive Heart Failure (CHF) Additional Family Medical History / Comment(s): Open heart surgery Medications and Allergies Home Medications Medication Instructions Recorded Confirmed Type Azelastine HCl 1 spray EA NOSTRIL BID PRN 11/26/21 12/02/21 History Dulaglutide [Trulicity] 1.5 mg SQ FR 11/26/21 12/02/21 History Empagliflozin [Jardiance] 25 mg PO DAILY 11/26/21 12/02/21 History Ergocalciferol (Vitamin D2) 1,250 mcg PO Q7D 11/26/21 12/02/21 History [Drisdol (50,000 Iu)] Fexofenadine HCl [Yael Allergy] 180 mg PO DAILY 11/26/21 12/02/21 History Levothyroxine Sodium [Synthroid] 75 mcg PO DAILY 11/26/21 12/02/21 History Montelukast [Singulair] 10 mg PO DAILY 11/26/21 12/02/21 History Omeprazole 40 mg PO BID 11/26/21 12/02/21 History PARoxetine HCL 60 mg PO DAILY 11/26/21 12/02/21 History Pioglitazone HCl 15 mg PO DAILY 11/26/21 12/02/21 History lisinopriL [Zestril] 5 mg PO DAILY 11/26/21 12/02/21 History metFORMIN HCL ER [Glucophage XR] 500 mg PO BID 11/26/21 12/02/21 History Aspirin 81 mg PO DAILY 90 Days #90 tab 11/28/21 12/02/21 Rx Clopidogrel [Plavix] 75 mg PO DAILY 90 Days #90 tab 11/28/21 12/02/21 Rx Metoprolol Tartrate [Lopressor] 12.5 mg PO HS 90 Days #90 tab 11/28/21 12/02/21 Rx Metoprolol Tartrate [Lopressor] 25 mg PO DAILY 90 Days #90 tab 11/28/21 12/02/21 Rx Nitroglycerin Sl Tabs [Nitrostat] 0.4 mg SUBLINGUAL Q5M PRN #25 tab 11/28/21 12/02/21 Rx Atorvastatin [Lipitor] 80 mg PO DAILY 12/02/21 12/02/21 History Allergies Allergy/AdvReac Type Severity Reaction Status Date / Time morphine Allergy Swelling Verified 12/02/21 15:45 hydromorphone [From Dilaudid] AdvReac Hallucinati Verified 12/02/21 15:45 ons lorazepam [From Ativan] AdvReac Hallucinati Verified 12/02/21 15:45 ons Physical Exam Vitals: Vital Signs Temp Pulse Pulse Resp BP BP Pulse Ox 12/03/21 08:00 98.2 F 63 18 138/62 94 L 12/03/21 04:00 98.2 F 77 18 120/65 92 L 12/03/21 02:00 72 16 12/03/21 00:00 98.2 F 72 16 131/63 93 L 12/02/21 20:00 98.0 F 74 16 156/72 94 L 12/02/21 16:00 97.6 F 74 16 142/61 97 12/02/21 15:40 75 18 130/65 94 L 12/02/21 13:53 64 18 126/58 95 12/02/21 12:45 98.2 F 73 18 141/82 94 L Intake and Output 12/02/21 12/03/21 12/03/21 22:59 06:59 14:59 Intake Total 315.88 52.071 Balance 315.88 52.071 Intake: Intake, IV Titration 75.88 52.071 Amount Heparin Sod,Pork in 0.45% 75.88 52.071 NaCl 25,000 unit In 0.45 % NaCl 1 250ml.bag @ 12 UNITS/KG/HR 8.927 mls/hr IV .Q24H [facility] Rx#: [id number] Oral 240 Other: # Voids 1 Weight 74.389 kg Results 12/02/21 12:56 12/02/21 12:56 Cardiac Enzymes 12/02/21 12/02/21 12/02/21 Range/Units 12:56 12:56 16:06 AST 32 (14-36) U/L Troponin I 0.064 H* 0.078 H* (0.000-0.034) ng/mL 12/02/21 Range/Units 18:34 AST (14-36) U/L Troponin I 0.075 H* (0.000-0.034) ng/mL Coagulation 12/02/21 12/02/21 12/03/21 Range/Units 12:56 20:32 02:38 PT 10.4 (9.0-12.0) sec APTT 22.9 35.2 H 38.6 H (22.0-30.0) sec 12/03/21 Range/Units 08:35 PT (9.0-12.0) sec APTT 48.7 H (22.0-30.0) sec Lipids 12/03/21 Range/Units 02:38 Triglycerides 315.00 H (0.00-149.00) mg/dL Cholesterol 116.00 (0.00-200.00) mg/dL HDL Cholesterol 31.90 L (40.00-60.00) mg/dL Cholesterol/HDL Ratio 3.64 Ratio CBC 12/02/21 Range/Units 12:56 WBC 10.6 (3.8-10.6) k/uL RBC 4.96 (3.80-5.40) m/uL Hgb 10.1 L (11.4-16.0) gm/dL Hct 32.8 L (34.0-46.0) % Plt Count 261 (150-450) k/uL Comprehensive Metabolic Panel 12/02/21 Range/Units 12:56 Sodium 139 (137-145) mmol/L Potassium 3.9 (3.5-5.1) mmol/L Chloride 106 (98-107) mmol/L Carbon Dioxide 27 (22-30) mmol/L BUN 13 (7-17) mg/dL Creatinine 0.66 (0.52-1.04) mg/dL Glucose 119 H (74-99) mg/dL Calcium 8.8 (8.4-10.2) mg/dL AST 32 (14-36) U/L ALT 21 (4-34) U/L Alkaline Phosphatase 59 (38-126) U/L Total Protein 7.2 (6.3-8.2) g/dL Albumin 3.9 (3.5-5.0) g/dL Current Medications Generic Name Dose Route Start Last Admin Trade Name Freq PRN Reason Stop Dose Admin Acetaminophen 650 mg 12/03/21 03:16 12/03/21 09:16 Acetaminophen Tab 325 Mg Tab PO 650 mg Q4HR PRN Administration Fever and/ or Pain Aspirin 81 mg 12/03/21 09:00 12/03/21 06:32 Aspirin 81 Mg PO 81 mg DAILY [facility] Administration Atorvastatin Calcium 80 mg 12/03/21 09:00 12/03/21 06:33 Atorvastatin 80 Mg Tab PO 80 mg DAILY [facility] Administration Clopidogrel Bisulfate 75 mg 12/03/21 09:00 12/03/21 06:33 Clopidogrel 75 Mg Tab PO 75 mg DAILY [facility] Administration Ergocalciferol 1,250 mcg 12/03/21 09:00 12/03/21 09:42 Ergocalciferol 1,250 Mcg (50,000 Iu) Capsule PO Not Given Q7D [facility] Levothyroxine Sodium 75 mcg 12/03/21 06:30 12/03/21 06:33 Levothyroxine 75 Mcg Tab PO 75 mcg DAILY@0630 [facility] Administration Lisinopril 5 mg 12/03/21 09:00 12/03/21 06:33 Lisinopril 5 Mg Tab PO 5 mg DAILY [facility] Administration Metoprolol Tartrate 12.5 mg 12/02/21 21:00 12/02/21 21:57 Metoprolol Tartrate 12.5 Mg Tab PO 12.5 mg HS [facility] Administration Metoprolol Tartrate 25 mg 12/03/21 09:00 12/03/21 06:33 Metoprolol Tartrate 25 Mg Tab PO 25 mg DAILY [facility] Administration Montelukast Sodium 10 mg 12/03/21 09:00 12/03/21 06:33 Montelukast 10 Mg Tab PO 10 mg DAILY [facility] Administration Pantoprazole Sodium 40 mg 12/03/21 18:45 Pantoprazole 40 Mg Tablet PO AC-BID [facility] Paroxetine HCl 60 mg 12/03/21 09:00 12/03/21 06:33 Paroxetine 20 Mg Tab PO 60 mg DAILY [facility] Administration Intake and Output 12/02/21 12/03/21 12/03/21 22:59 06:59 14:59 Intake Total 315.88 52.071 Balance 315.88 52.071 Intake: Intake, IV Titration 75.88 52.071 Amount Heparin Sod,Pork in 0.45% 75.88 52.071 NaCl 25,000 unit In 0.45 % NaCl 1 250ml.bag @ 12 UNITS/KG/HR 8.927 mls/hr IV .Q24H [facility] Rx#: [id number] Oral 240 Other: # Voids 1 Weight 74.389 kg 12/02/21 12:56 12/02/21 12:56
[2021-12-03 16:26] LABS: Glucose,Whole Blood 116 mg/dL (75-99)
--- NOTE | 2021-12-03 18:06 | P.PN ---
Subjective Progress Note Date: 12/03/21 History of Presenting Illness: Patient is a very pleasant 71-year-old female with a past medical history of CAD with recent STEMI resulting in stent placement to RCA on 11/26/21, hypertension, hyperlipidemia, hypothyroidism, and [id number] diabetes mellitus type 2. She presented to the emergency department with a chief complaint of chest pain. Patient reports pain to left anterior chest radiating beneath her left breast. She reports this is the exact same sensation she felt with previous NV with the exception of vomiting. Patient states that she was at the drugstore when she simply overall did not feel well. Patient reports she just felt generally ill to the point that she needed to sit down and she has never done this before. Patient states after sitting down she began to notice she felt very nauseous and began experiencing pain to the left side of her chest radiating beneath her left breast. Patient reports after taking 3 nitroglycerin tablets, her pain finally subsided. Patient presented to the emergency department secondary to concerns of this pain and understanding that she needs additional stents placed. Cardiac cath completed 11/26/21 revealed three-vessel coronary artery disease with severe stenotic lesions in the right coronary artery with tentative plan for patient to undergo scheduled angioplasty of the ramus intermedius in LAD on outpatient basis. Patient currently reports pain remains resolved since taking her third nitro. Patient denies having any headache, lightheadedness, dizziness, palpitations, shortness of breath, dyspnea with exertion, nausea, neck pain, jaw pain, shoulder pain, back pain, or experiencing any numbness/tingling/weakness/swelling in her extremities. Patient underwent full evaluation in the emergency department. She was found to have an elevated troponin of 0.064, it is unclear if this is still elevated from previous STEMI or if this is a new elevation. EKG revealing sinus rhythm with new onset T-wave inversion in leads II, III, aVF, V3, V4, V5, and V6. Chest x- ray negative for acute cardiopulmonary process. Patient started on IV heparin and nitro infusion and admitted under our services with consultation to cardiology. Physical exam: Patient seen and fully evaluated at bedside this morning. She was sitting up in visiting with her family. Patient currently reports resolution of left anterior chest pain and has had no further episodes of nausea or diarrhea. Patient denies experiencing any headache, lightheadedness, dizziness, palpitations, shortness of breath, or complaints at this time. Triglyceride levels were elevated at 315. Patient started on fenofibrate in addition to daily medication regimen with atorvastatin. Vital signs reviewed and stable. General: Nontoxic, no distress and appears stated age. Derm: Skin warm and dry, normal coloration for ethnicity. Head: Atraumatic, normocephalic and symmetric. Eyes: EOMs intact, no lid lag, and anicteric sclera Mouth: no lip lesions, mucus membranes moist Cardiovascular: regular rate and rhythm with normal S1S2, no murmur, positive posterior tibial pulses bilaterally, and cap refill < 2 seconds. Lungs: Respirations even, regular, and unlabored on room air. Lungs CTA bilaterally, no rhonchi, no rales, no wheezing, and no accessory muscle usage. Abdominal: soft, nontender to palpation, no guarding, no appreciable organomegaly Ext: ROM intact. No gross muscle atrophy, no edema, no contractures Neuro: Speech clear, face symmetrical and CN II-XII grossly intact with no noted focal neuro deficits Psych: Alert and oriented to person, place, time, and situation. Appropriate and pleasant affect. Assessment and Plan of Care: Unstable angina status post recent RCA stent placement in patient with known three-vessel coronary artery disease Chest pain, acute coronary event was ruled out as troponins downtrending -Cardiology following, appreciate further recommendations -Telemetry monitoring -Troponins downtrending -Cardiac diet -Aspirin, Plavix, atorvastatin, and metoprolol -Echocardiogram completed 11/27/21 revealed an EF between 50 and 55% with left ventricular hypokinesis. Will defer to cardiology if they want to repeat echocardiogram. -Gastroenterology did evaluate secondary to reports of left anterior chest pain radiating beneath last breast accompanied by episode of nausea and diarrhea. GI recommending continuation of Protonix 40 mg daily with no additional recommendations at this time. Hypertension Monitor vital signs and continue daily medication regimen with metoprolol and lisinopril Hyperlipidemia hypertriglyceridemia Continue daily medication regimen with atorvastatin 80 mg daily. Fenofibrate added to daily medication regimen as triglyceride levels were elevated at 315. Hypothyroidism Continue daily medication regimen with levothyroxine sodium 75 g daily. CODE STATUS: Full code DVT prophylaxis: Heparin Discussed with: patient, patient's , and patient's daughter at bedside Anticipated discharge date: clinical course to determine Anticipated discharge place: : Home A total of 38 minutes was spent on the care of this complex patient more than 50% of the time was spent in counseling and care coordination. Objective - Vital Signs Vital signs: Vital Signs Temp 98.2 F 12/03/21 04:00 Pulse 77 12/03/21 04:00 Resp 18 12/03/21 04:00 BP 120/65 12/03/21 04:00 Pulse Ox 92 L 12/03/21 04:00 Intake & Output 12/02/21 12/03/21 12/03/21 18:59 06:59 18:59 Intake Total 240 127.951 Balance 240 127.951 Weight 74.389 kg 74.389 kg Intake: Intake, IV Titration 127.951 Amount Heparin Sod,Pork in 0.45% 127.951 NaCl 25,000 unit In 0.45 % NaCl 1 250ml.bag @ 12 UNITS/KG/HR 8.927 mls/hr IV .Q24H [facility] Rx#: [id number] Oral 240 Other: # Voids 1 - Labs CBC & Chem 7: 12/02/21 12:56 12/02/21 12:56 Labs: Abnormal Lab Results - Last 24 Hours (Table) 12/02/21 12/02/21 12/02/21 Range/Units 12:56 12:56 12:56 Hgb 10.1 L (11.4-16.0) gm/dL Hct 32.8 L (34.0-46.0) % MCV 66.2 L (80.0-100.0) fL MCH 20.3 L (25.0-35.0) pg MCHC 30.7 L (31.0-37.0) g/dL RDW 17.7 H (11.5-15.5) % APTT (22.0-30.0) sec Glucose 119 H (74-99) mg/dL POC Glucose (mg/dL) (75-99) mg/dL Troponin I 0.064 H* (0.000-0.034) ng/mL 12/02/21 12/02/21 12/02/21 Range/Units 16:06 16:45 18:34 Hgb (11.4-16.0) gm/dL Hct (34.0-46.0) % MCV (80.0-100.0) fL MCH (25.0-35.0) pg MCHC (31.0-37.0) g/dL RDW (11.5-15.5) % APTT (22.0-30.0) sec Glucose (74-99) mg/dL POC Glucose (mg/dL) 124 H (75-99) mg/dL Troponin I 0.078 H* 0.075 H* (0.000-0.034) ng/mL 12/02/21 12/02/21 12/03/21 Range/Units 19:01 20:32 02:38 Hgb (11.4-16.0) gm/dL Hct (34.0-46.0) % MCV (80.0-100.0) fL MCH (25.0-35.0) pg MCHC (31.0-37.0) g/dL RDW (11.5-15.5) % APTT 35.2 H 38.6 H (22.0-30.0) sec Glucose (74-99) mg/dL POC Glucose (mg/dL) 140 H (75-99) mg/dL Troponin I (0.000-0.034) ng/mL 12/03/21 Range/Units 05:36 Hgb (11.4-16.0) gm/dL Hct (34.0-46.0) % MCV (80.0-100.0) fL MCH (25.0-35.0) pg MCHC (31.0-37.0) g/dL RDW (11.5-15.5) % APTT (22.0-30.0) sec Glucose (74-99) mg/dL POC Glucose (mg/dL) 124 H (75-99) mg/dL Troponin I (0.000-0.034) ng/mL
[2021-12-03] MEDS: PANTOPRAZOLE 40 MG TABLET PO SCH (18:20)
[2021-12-03] MEDS: METOPROLOL TARTRATE 12.5 MG TAB PO SCH (20:11)
[2021-12-03 20:22] LABS: Glucose,Whole Blood 119 mg/dL (75-99)
[2021-12-04 03:32] VITALS: RESP 17
[2021-12-04 06:02] LABS: Glucose,Whole Blood 102 mg/dL (75-99)
[2021-12-04] MEDS: LEVOTHYROXINE 75 MCG TAB PO SCH (06:09)
[2021-12-04] MEDS: PANTOPRAZOLE 40 MG TABLET PO SCH (06:09)
[2021-12-04 08:27] VITALS: BP 117/69; PULSE 81; TEMP 98.6
[2021-12-04] MEDS: METOPROLOL TARTRATE 25 MG TAB PO SCH (08:57)
[2021-12-04] MEDS: ASPIRIN 81 MG PO SCH (08:57)
[2021-12-04] MEDS: MONTELUKAST 10 MG TAB PO SCH (08:57)
[2021-12-04] MEDS: ATORVASTATIN 80 MG TAB PO SCH (08:57)
[2021-12-04] MEDS: lisinopriL 5 MG TAB PO SCH (08:58)
[2021-12-04] MEDS: CLOPIDOGREL 75 MG TAB PO SCH (08:58)
[2021-12-04] MEDS: PARoxetine 20 MG TAB PO SCH (08:58)
[2021-12-04] MEDS ORDERED: FENOFIBRATE 160 MG TAB PO SCH (09:00)
--- NOTE | 2021-12-04 10:35 | P.PN ---
Subjective Progress Note Date: 12/04/21 Principal diagnosis: Chest pain Patient is 71-year-old female who presented to the emergency department with complaints of left upper quadrant abdominal/chest pain. Was followed by episode of nausea and vomiting as well as diarrhea. Patient had similar experience a week ago and was brought in as a end STEMI and underwent 2 stents. Today she states she has no abdominal pain, no chest pain, no shortness of breath, no nausea, vomiting, or diarrhea. Symptoms have improved cardiology is following and do not believe it is an acute coronary event. Objective - Vital Signs Vital signs: Vital Signs Temp 98.6 F 12/04/21 08:00 Pulse 81 12/04/21 08:00 Resp 17 12/04/21 08:00 BP 117/69 12/04/21 08:00 Pulse Ox 96 12/04/21 08:00 Intake & Output 12/03/21 12/04/21 12/04/21 18:59 06:59 18:59 Intake Total 1820 540 Balance 1820 540 Intake: Oral 1820 540 Other: # Voids 4 1 - Exam General appearance: The patient is alert, oriented, appears in no acute distress. HET: Head is normocephalic and atraumatic. Conjunctiva pink. Sclera anicteric. Neck: Supple without lymphadenopathy. Abdomen: Soft, nontender, nondistended with bowel sounds. No guarding or rigidity. Extremities: Normal skin color and turgor. No pedal edema Skin: No rashes, no jaundice Neurological: No focal deficits. Alert and oriented -3. - Labs CBC & Chem 7: 12/02/21 12:56 12/02/21 12:56 Labs: Abnormal Lab Results - Last 24 Hours (Table) 12/03/21 12/03/21 12/03/21 Range/Units 02:38 11:43 16:24 POC Glucose (mg/dL) 182 H 116 H (75-99) mg/dL Triglycerides 315.00 H (0.00-149.00) mg/dL 12/03/21 12/04/21 Range/Units 20:20 06:01 POC Glucose (mg/dL) 119 H 102 H (75-99) mg/dL Triglycerides (0.00-149.00) mg/dL Assessment and Plan (1) Left upper quadrant abdominal pain Narrative/Plan: This is a 71-year-old female who presented to the emergency department with complaints of left-sided chest pain that radiated underneath her breast bone and to her flank region followed by episode of nausea vomiting and diarrhea. Patient had similar symptoms a week ago and came in as an STEMI and underwent placement of 2 cardiac stents. Patient states yesterday when she was at the grocery store the same feelings presented as a week ago and she thought she was having another heart attack. She denies any further diarrhea and nausea, vomiting however states she does still have some mild discomfort underneath the left breast bone. She states she does have a history of colitis related to eating vegetables as well as lactose intolerant. She recently underwent an EGD in the last 1-2 years done at [facility]. Last colonoscopy was several years ago Dr. Hess. Cardiology has seen patient she did have elevated troponin. Patient states they told her they thought she had a vasovagal response and not cardiac related. At this time patient is feeling better. Will continue to monitor, continue protonix. Labs were unremarkable. Patient did have elevation in her troponin however that is trending down per cardiology. Symptoms are improving. Unknown etiology of left upper quadrant pain. Current Visit: Yes Status: Acute Code(s): R10.12 - LEFT UPPER QUADRANT PAIN SNOMED Code(s): 748861359 (2) Chest pain Narrative/Plan: Etiology following. Acute coronary event ruled out. Current Visit: Yes Status: Acute Code(s): R07.9 - CHEST PAIN, UNSPECIFIED SNOMED Code(s): 98081761 Plan: 1. Continue symptomatic and supportive care 2. Continue Protonix 40 mg twice a day 3. Diet as tolerated 4. No plan for an endoscopic evaluation 5. Patient is cleared for discharge from gastroenterology. Patient to follow- up as needed Dr. Roxanne Mccormick I agree with the dictator's note, documented as a scribe by Patricia Schreiber.
--- NOTE | 2021-12-04 11:03 | P.DS ---
Providers Date of admission: 12/02/21 13:58 Expected date of discharge: 12/04/21 Attending physician: Lianne Lin, Consults: 12/02/21 13:58 Consult Physician Urgent Consulting Provider: [facility] Consult Reason/Comments: Unstable angina Do you want consulting provider notified?: Yes 12/03/21 08:52 Consult Physician Routine Consulting Provider: Josiane Mccormick Consult Reason/Comments: abdominal pain, diarrhea Do you want consulting provider notified?: Yes Primary care physician: [facility] Course: Discharge Diagnosis: Unstable angina status post recent RCA stent placement in patient with known three-vessel coronary artery disease Chest pain, acute coronary event was ruled out as troponins downtrending Hypertension, Monitor vital signs and continue daily medication regimen with metoprolol and lisinopril Hyperlipidemia and hypertriglyceridemia, patient to continue daily medication r egimen with atorvastatin 80 mg nightly and fenofibrate was also added to daily medication regimen secondary to elevated triglycerides of 315. Hypothyroidism, Continue daily medication regimen with levothyroxine sodium 75 g daily. Hospital Course: Patient is a very pleasant 71-year-old female with a past medical history of CAD with recent STEMI resulting in stent placement to RCA on 11/26/21, hypertension, hyperlipidemia, hypothyroidism, and [id number] diabetes mellitus type 2. She presented to the emergency department with a chief complaint of chest pain. Patient reports pain to left anterior chest radiating beneath her left breast. She reports this is the exact same sensation she felt with previous [place] with the exception of vomiting. Patient states that she was at the drugstore when she simply overall did not feel well. Patient reports she just felt generally ill to the point that she needed to sit down and she has never done this before. Patient states after sitting down she began to notice she felt very nauseous and began experiencing pain to the left side of her chest radiating beneath her left breast. Patient reports after taking 3 nitroglycerin tablets, her pain finally subsided. Patient presented to the emergency department secondary to concerns of this pain and understanding that she needs additional stents placed. Cardiac cath completed 11/26/21 revealed three-vessel coronary artery disease with severe stenotic lesions in the right coronary artery with tentative plan for patient to undergo scheduled angioplasty of the ramus intermedius in LAD on outpatient basis. Patient currently reports pain remains resolved since taking her third nitro. Patient denies having any headache, lightheadedness, dizziness, palpitations, shortness of breath, dyspnea with exertion, nausea, neck pain, jaw pain, shoulder pain, back pain, or experiencing any numbness/tingling/weakness/swelling in her extremities. Hilton bond underwent full evaluation in the emergency department. She was found to have an elevated troponin of 0.064, it is unclear if this is still elevated from previous STEMI or if this is a new elevation. EKG revealing sinus rhythm with new onset T-wave inversion in leads II, III, aVF, V3, V4, V5, and V6. Chest x- ray negative for acute cardiopulmonary process. Patient started on IV heparin and nitro infusion and admitted under our services with consultation to cardiology. Patient underwent full evaluation by cardiology and acute coronary event has been ruled out. Cardiology recommending patient continue current cardiac medication regimen and stable to follow-up on outpatient basis. Lipid profile was obtained which revealed hypertriglyceridemia with triglyceride level of 315 and VLDL of 63.00 and low HDL of 31.90. Patient was started on fenofibrate in addition to daily medication regimen with atorvastatin. Patient is medically stable at this time, she is free from any chest pain or any other complaints. Patient to follow up outpatient with PCP and cardiology. Physical exam: Vital signs reviewed and stable. General: Nontoxic, no distress and appears stated age. Derm: Skin warm and dry, normal coloration for ethnicity. Head: Atraumatic, normocephalic and symmetric. Eyes: EOMs intact, no lid lag, and anicteric sclera Mouth: no lip lesions, mucus membranes moist Cardiovascular: regular rate and rhythm with normal S1S2, no murmur, positive posterior tibial pulses bilaterally, and cap refill < 2 seconds. Lungs: Respirations even, regular, and unlabored on room air. Lungs CTA bilaterally, no rhonchi, no rales, no wheezing, and no accessory muscle usage. Abdominal: soft, nontender to palpation, no guarding, no appreciable organomegaly Ext: ROM intact. No gross muscle atrophy, no edema, no contractures Neuro: Speech clear, face symmetrical and CN II-XII grossly intact with no noted focal neuro deficits Psych: Alert and oriented to person, place, time, and situation. Appropriate and pleasant affect. A total of 42 minutes of time were spent preparing this complex discharge summary. Pt was discharged on 12/04/21 at 9:59 AM Patient Condition at Discharge: Stable Plan - Discharge Summary Discharge Rx Participant: No New Discharge Prescriptions: New Fenofibrate [Lofibra] 160 mg PO DAILY 60 Days #60 tab Continue Fexofenadine HCl [Yael Allergy] 180 mg PO DAILY Ergocalciferol (Vitamin D2) [Drisdol (50,000 Iu)] 1,250 mcg PO Q7D Dulaglutide [Trulicity] 1.5 mg SQ FR metFORMIN HCL ER [Glucophage XR] 500 mg PO BID Montelukast [Singulair] 10 mg PO DAILY Aspirin 81 mg PO DAILY 90 Days #90 tab Metoprolol Tartrate [Lopressor] 25 mg PO DAILY 90 Days #90 tab Pioglitazone HCl 15 mg PO DAILY lisinopriL [Zestril] 5 mg PO DAILY PARoxetine HCL 60 mg PO DAILY Omeprazole 40 mg PO BID Levothyroxine Sodium [Synthroid] 75 mcg PO DAILY Empagliflozin [Jardiance] 25 mg PO DAILY Azelastine HCl 1 spray EA NOSTRIL BID PRN PRN Reason: Allergy Symptoms Nitroglycerin Sl Tabs [Nitrostat] 0.4 mg SUBLINGUAL Q5M PRN #25 tab PRN Reason: Chest Pain Clopidogrel [Plavix] 75 mg PO DAILY 90 Days #90 tab Metoprolol Tartrate [Lopressor] 12.5 mg PO HS 90 Days #90 tab Atorvastatin [Lipitor] 80 mg PO DAILY Discharge Medication List Azelastine HCl 1 spray EA NOSTRIL BID PRN 11/26/21 [History] Dulaglutide [Trulicity] 1.5 mg SQ FR 11/26/21 [History] Empagliflozin [Jardiance] 25 mg PO DAILY 11/26/21 [History] Ergocalciferol (Vitamin D2) [Drisdol (50,000 Iu)] 1,250 mcg PO Q7D 11/26/21 [History] Fexofenadine HCl [Yael Allergy] 180 mg PO DAILY 11/26/21 [History] Levothyroxine Sodium [Synthroid] 75 mcg PO DAILY 11/26/21 [History] Montelukast [Singulair] 10 mg PO DAILY 11/26/21 [History] Omeprazole 40 mg PO BID 11/26/21 [History] PARoxetine HCL 60 mg PO DAILY 11/26/21 [History] Pioglitazone HCl 15 mg PO DAILY 11/26/21 [History] lisinopriL [Zestril] 5 mg PO DAILY 11/26/21 [History] metFORMIN HCL ER [Glucophage XR] 500 mg PO BID 11/26/21 [History] Aspirin 81 mg PO DAILY 90 Days #90 tab 11/28/21 [Rx] Clopidogrel [Plavix] 75 mg PO DAILY 90 Days #90 tab 11/28/21 [Rx] Metoprolol Tartrate [Lopressor] 12.5 mg PO HS 90 Days #90 tab 11/28/21 [Rx] Metoprolol Tartrate [Lopressor] 25 mg PO DAILY 90 Days #90 tab 11/28/21 [Rx] Nitroglycerin Sl Tabs [Nitrostat] 0.4 mg SUBLINGUAL Q5M PRN #25 tab 11/28/21 [Rx] Atorvastatin [Lipitor] 80 mg PO DAILY 12/02/21 [History] Fenofibrate [Lofibra] 160 mg PO DAILY 60 Days #60 tab 12/04/21 [Rx] Follow up Appointment(s)/Referral(s): Víctor Salamanca MD [Primary Care Provider] - 12/05/21 10:20 am Josiane Mccormick MD [STAFF PHYSICIAN] - As Needed (Patient reports she has an appointment on Thursday for follow-up ) Patient Instructions/Handouts: Angina (DC) Activity/Diet/Wound Care/Special Instructions: Activity: As tolerated. Take breaks as needed. Remember to change positions slowly from lying to sitting, sitting to standing and standing to walking. Diet: Heart healthy and carb consistent diet. Avoid salts, or foods with hidden salts such as canned or boxed foods and frozen dinners. Extra salt makes your heart work harder and traps the fluid in your body for longer. Special Instructions: Take all of your medications as directed and remember to keep all of your doctor's appointments and follow-up as needed. Please review your home medication discharge list, as you were started on a new medication called fenofibrate to assist in lowering your triglyceride levels. Thank you for allowing us to participate in your care, it was truly a pleasure having you for our patient!!! Discharge Disposition: HOME SELF-CARE
[2021-12-04 11:52] LABS: Glucose,Whole Blood 87 mg/dL (75-99)
--- NOTE | 2021-12-04 12:37 | P.PN ---
Subjective Progress Note Date: 12/04/21 HISTORY OF PRESENT ILLNESS: This is a 71 year old female with a past medical history significant for hypertension, hyperlipidemia, diabetes, hypothyroidism, and coronary artery disease. Patient follows in the office with Dr. Shay. We have been asked to see the patient in consultation for abnormal troponins. Patient examined at the bedside. Patient was admitted to the hospital last week secondary to STEMI. She underwent cardiac cath and PCI to the RCA. The patient was also found to have a 60-70% stenosis of the mid LAD and 70% stenosis of the ramus intermedius. The patient presented to the hospital yesterday with complaints of left-sided abdominal pain. She denies having any chest pain or pressure. She denies having any shortness of breath. She reports having nausea and diarrhea at home. She denied any diaphoresis. * EKG reveals sinus mechanism with T wave inversions in inferior leads, V3-V6. * Chest xray no evidence for acute pulmonary disease * Laboratory data: WBC 10.6. Hemoglobin 10.1. Platelet count 261. Sodium 139. Potassium 3.9. BUN 13. Creatinine 0.66. troponin 0.064. 0.078. 0.075. These are trending downward from last week with a troponin peak of 1.300 * Current home cardiac medications include aspirin 81 mg daily, Lipitor 80 mg daily, Plavix 75 mg daily, metoprolol tartrate 25 mg daily, lisinopril 5 mg daily, and metoprolol tartrate 12.5 mg at night. * Most recent echocardiogram obtained in November 2021 revealed ejection fraction 50-55%, basal inferior LV wall hypokinesis, basal inferior septal LV wall hypokinesis, mild mitral regurgitation 12/04/2021 Patient examined this morning at the bedside. Patient denies chest pain or pressure. She denies shortness of breath. Vital signs are stable. She denies any abdominal pain this morning or diarrhea. She has been seen by GI service. PHYSICAL EXAM: VITAL SIGNS: Reviewed. GENERAL: Well-developed in no acute distress. HEENT: Head is normocephalic. Pupils are equal, round. Sclerae anicteric. Mucous membranes of the mouth are moist. Neck supple. No JVD or thyromegaly LUNGS: Respirations even and unlabored. Lungs essentially clear to auscultation bilaterally. HEART: Regular rate and rhythm. S1 and S2 heard. ABDOMEN: Soft. Nondistended. Nontender. EXTREMITIES: Normal range of motion. No clubbing or cyanosis. Peripheral pulses intact. No lower extremity edema NEUROLOGIC: Awake and alert. Oriented x 3. ASSESSMENT: Left sided abdominal pain, nausea, diarrhea Chest pain, ruled out, patient denies having chest pain Coronary artery disease with recent stent placement to the RCA with known lesions of the ramus intermedius and LAD Hypertension Hyperlipidemia Diabetes Hypothyroidism PLAN: Continue current cardiac medications Patient is stable for discharge home today from a cardiac standpoint She is to follow up on an outpatient basis. Nurse practitioner note has been reviewed by physician. Signing provider agrees with the documented findings, assessment, and plan of care. Objective - Vital Signs Vital signs: Vital Signs Temp 98.6 F 12/04/21 08:00 Pulse 81 12/04/21 08:00 Resp 17 12/04/21 08:00 BP 117/69 12/04/21 08:00 Pulse Ox 96 12/04/21 08:00 Intake & Output 12/03/21 12/04/21 12/04/21 18:59 06:59 18:59 Intake Total 1820 540 Balance 1820 540 Intake: Oral 1820 540 Other: # Voids 4 1 - Labs CBC & Chem 7: 12/02/21 12:56 12/02/21 12:56 Labs: Abnormal Lab Results - Last 24 Hours (Table) 12/03/21 12/03/21 12/04/21 Range/Units 16:24 20:20 06:01 POC Glucose (mg/dL) 116 H 119 H 102 H (75-99) mg/dL
== END 2021-12-04 13:53 | disposition home or self-care (01) | DRG 282 ==
LOC: EC 12:38 → 3SCARD 13:58
PROVIDERS: ADMIT Internal Medicine; ATTEND Internal Medicine
DX: I25.110 Atherosclerotic heart disease of native coronary artery with unstable angina pectoris (principal); I21.3 ST elevation (STEMI) myocardial infarction of unspecified site; E03.9 Hypothyroidism, unspecified; E11.9 Type 2 diabetes mellitus without complications; E78.1 Pure hyperglyceridemia; E78.5 Hyperlipidemia, unspecified; F41.9 Anxiety disorder, unspecified; I10 Essential (primary) hypertension; E73.9 Lactose intolerance, unspecified; R55 Syncope and collapse; I34.0 Nonrheumatic mitral (valve) insufficiency; R11.0 Nausea; R19.7 Diarrhea, unspecified; Z28.310 Unvaccinated for COVID-19; Z79.02 Long term (current) use of antithrombotics/antiplatelets; Z79.82 Long term (current) use of aspirin; Z79.84 Long term (current) use of oral hypoglycemic drugs; Z79.890 Hormone replacement therapy; Z79.899 Other long term (current) drug therapy; Z87.891 Personal history of nicotine dependence; Z90.711 Acquired absence of uterus with remaining cervical stump; Z95.5 Presence of coronary angioplasty implant and graft; Z87.19 Personal history of other diseases of the digestive system; Z98.890 Other specified postprocedural states; Z88.5 Allergy status to narcotic agent; Z88.8 Allergy status to other drugs, medicaments and biological substances; Z98.49 Cataract extraction status, unspecified eye; Z82.49 Family history of ischemic heart disease and other diseases of the circulatory system; Z83.2 Family history of diseases of the blood and blood-forming organs and certain disorders involving the immune mechanism
CPT/HCPCS: 36415; 71046; 80053; 80061; 83735; 84484; 85025; 85610; 85730; 93005; 96365; 96366; 96375; 99291

== ENCOUNTER 2021-12-24 07:47 | Day surgery (SDC) | payer MEDICARE, OTHER ==
[2021-12-23 11:47] VITALS: BMI 29.9
[~2021-12-24 07:47] MED LIST: ALPRAZolam 0.25 MG TAB PO PRN; ALPRAZolam 0.5 MG TAB PO PRN; ASPIRIN 325 MG TAB PO ONE; ATORVASTATIN 80 MG TAB PO ONE; HEPARIN SODIUM,PORCINE 10,000 UNIT in SODIUM CHLORIDE 0.9% 1,000 ML IRRIGATION PRN; HEPARIN SODIUM,PORCINE 2,500 UNIT in SODIUM CHLORIDE 0.9% 250 ML IRRIGATION PRN; NITROGLYCERIN SL TABS 0.4 MG TAB SUBLINGUAL PRN; SODIUM CHLORIDE 0.9% 1,000 ML in EMPTY BAG 1 BAG IV SCH
[2021-12-24 08:36] LABS: Glucose,Whole Blood 141 mg/dL (75-99)
[2021-12-24] MEDS ORDERED: SODIUM CHLORIDE 0.9% 1,000 ML IV ONE (08:39)
[2021-12-24 08:41] VITALS: RESP 16; TEMP 97.4
[2021-12-24] MEDS ORDERED: VERAPAMIL 2.5 MG/ML 2 ML AMP ONE (09:43)
[2021-12-24] MEDS ORDERED: fentaNYL (PF) 50 MCG/ML 2 ML AMP ONE (09:57)
[2021-12-24] MEDS ORDERED: fentaNYL (PF) 50 MCG/ML 2 ML AMP IVP ONE (10:16)
[2021-12-24] MEDS ORDERED: HEPARIN SODIUM 1,000 UN/ML (10ML VL) ONE (10:17)
[2021-12-24] MEDS ORDERED: LIDOCAINE 1% INJ 10MG/ML (5 ML VIAL-PF) SQ ONE (10:18)
[2021-12-24] MEDS ORDERED: VERAPAMIL SYRINGE (5 MG/10 ML) INTRAARTER ONE (10:22)
[2021-12-24] MEDS: HEPARIN SODIUM 1,000 UN/ML (10ML VL) IV ONE ×3 (10:29→10:57)
[2021-12-24] MEDS ORDERED: NITROGLYCERIN 1000MCG/10ML SYRINGE INTRACORON ONE (10:42)
[2021-12-24] MEDS ORDERED: IOPAMIDOL-370 125ML BTL INJ ONE (10:44)
[2021-12-24] MEDS ORDERED: IOPAMIDOL-370 100ML BTL INJ ONE (10:57)
[2021-12-24] MEDS ORDERED: ATROPINE SULFATE 0.1 MG/ML 10ML SYRINGE IV PRN (11:00)
[2021-12-24] MEDS ORDERED: RX INFO: IV CONTRAST WAS GIVEN 1 EACH MISC MISCELLANE PRN (11:00)
[2021-12-24] MEDS ORDERED: ZOLPIDEM 5 MG TAB PO PRN (11:00)
[2021-12-24] MEDS ORDERED: SODIUM CHLORIDE 0.9% 1,000 ML in EMPTY BAG 1 BAG IV SCH (11:00)
[2021-12-24] MEDS ORDERED: MAG HYDROX/AL HYDROX/SIMETH 30 ML CUP PO PRN (11:00)
[2021-12-24] MEDS ORDERED: NITROGLYCERIN SL TABS 0.4 MG TAB SUBLINGUAL PRN (11:00)
--- NOTE | 2021-12-24 11:12 | P.CARDCATH ---
Date of Procedure: 12/24/21 Description of Procedure: Cardiac Catheterization: The patient is a 71-year-old female with a known history of hypertension, hyperlipidemia and diabetes mellitus who recently presented with an acute inferolateral wall myocardial infarction and was found to have subtotal occluded RCA, underwent stenting of that vessel at the same time she was found to have significant obstructive disease involving the ramus intermedius and moderate to significant disease in the long segment of heavily calcified mid LAD. Recommendations were made regarding cardiac catheterization, the risks and the complications were discussed with the patient who is in full understanding and agreement. 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 Using Xylocaine Anesthesia and Seldinger technique, a 6-Cymraes sheath was introduced in the right radial artery . Subsequently, selective coronary angiography performed using a 5-Cymraes 3.5 bend right Chaz and 6-Cymraes 3.5 bend left Chaz guiding catheter catheter. Multiple views of the coronary artery including hemiaxial views were obtained. Following that a 0.014 BMW wire was introduced in the ramus intermedius, attempt to advance a 2.5 x 12 mm NC Treck were unsuccessful, the balloon was removed and a 2.5 x 12 mm Treck balloon was advanced and 2 inflations at 8 rasheed were done subsequently the NC balloon was advanced and one inflation at 8 rasheed was done. Following that the 2.5 x 18 mm Xience farzana point was advanced deployed and postdilated at 16 rasheed. Following that, catheter and sheath were removed. Hemostasis was obtained with deployment of TR band . There was no immediate complication. Patient was returned to room in stable condition. Of note, the patient received a total of 6000 units of intravenous heparin as well as intra- arterial verapamil. There was no immediate complications. Her ACT was monitored and she was continued on Plavix. She had no chest discomfort or significant EKG changes. Findings: Fluoroscopy: There is severe calcifications involving all the coronary arteries. Left main: This is a large size vessel, trifurcating into LAD, left circumflex and ramus intermedius, the left main has a 20% plaque distally LAD: This is a large size vessel, reaching to the apex with a wrap around the apex segment giving rise to a diagonal branch in the proximal segment. The vessel is heavily calcified. 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 Ramus intermedius: This is a moderately sized vessel, calcified it has a 95% stenosis proximally, the rest of the vessel has no high-grade stenosis Left circumflex: This is a nondominant vessel giving rise to one obtuse marginal branch of large caliber the proximal left circumflex has a 40% plaque RCA: This is a large dominant vessel bifurcating into PDA and PLV, the stented segment in the mid RCA is patent with no evidence of in-stent restenosis. Conclusion: 1. Calcified coronary arteries 2. Patent stent to the RCA 3. Significant stenosis in the ramus intermedius with successful stenting reduction of the stenosis from 95% to 0% 4. Moderate to significant disease in the long segment of the mid LAD Recommendations: I have recommended to continue dual antiplatelets treatment with aspirin and Plavix for 1 year in addition to aggressive coronary risk modifications. She'll be followed in regard to her symptoms to see if there is a need to undergo further evaluation of her LAD lesion. In view of the length of the lesion and the calcification the risk of restenosis and thrombosis is high. Those findings and recommendations were discussed with the patient and she is in full understanding and agreement. Duration of sedation is 34 minutes.
[2021-12-24 13:26] VITALS: PULSE 70
[2021-12-24 17:03] VITALS: BP 138/72
[2021-12-24] MEDS ORDERED: METOPROLOL TARTRATE 12.5 MG TAB PO SCH (21:00)
[2021-12-25] MEDS ORDERED: ATORVASTATIN 80 MG TAB PO SCH (09:00)
[2021-12-25] MEDS ORDERED: CLOPIDOGREL 75 MG TAB PO SCH (09:00)
[2021-12-25] MEDS ORDERED: ASPIRIN 81 MG PO SCH (09:00)
[2021-12-25] MEDS ORDERED: lisinopriL 5 MG TAB PO SCH (09:00)
[2021-12-25] MEDS ORDERED: METOPROLOL TARTRATE 25 MG TAB PO SCH (09:00)
== END 2021-12-24 15:14 | disposition home or self-care (01) ==
LOC: CATHCVL 07:47
PROVIDERS: ATTEND Internal Medicine Interventional Cardiology
DX: I25.10 Atherosclerotic heart disease of native coronary artery without angina pectoris (principal); I10 Essential (primary) hypertension; I25.84 Coronary atherosclerosis due to calcified coronary lesion; E11.9 Type 2 diabetes mellitus without complications; I25.2 Old myocardial infarction; E78.00 Pure hypercholesterolemia, unspecified; E78.2 Mixed hyperlipidemia; Z20.822 Contact with and (suspected) exposure to COVID-19; Z95.5 Presence of coronary angioplasty implant and graft; Z98.49 Cataract extraction status, unspecified eye; Z98.890 Other specified postprocedural states; Z82.49 Family history of ischemic heart disease and other diseases of the circulatory system; Z87.891 Personal history of nicotine dependence; Z79.899 Other long term (current) drug therapy; Z79.84 Long term (current) use of oral hypoglycemic drugs; Z79.02 Long term (current) use of antithrombotics/antiplatelets; Z79.890 Hormone replacement therapy; Z88.5 Allergy status to narcotic agent; Z88.8 Allergy status to other drugs, medicaments and biological substances
CPT/HCPCS: 93458; 87635; C9600; C1769 ×2; C1887; C1894; C1725 ×2; C1874; J2001; J3010; J1644; Q9967 ×2

== ENCOUNTER → 2022-12-04 | Outpatient (CLI) | payer MEDICARE, OTHER ==
--- NOTE | 2022-12-04 21:38 | MR ---
EXAMINATION TYPE: MR brain wo con DATE OF EXAM: 12/04/2022 COMPARISON: NONE HISTORY: Prior 2011, several incidents of falling about 3 weeks after head injury, possible seizure activity, falling to left side, weakness to left side loss of hearing on left side, eeg showed some s eizure activity TECHNIQUE: Multiplanar, multisequence imaging of the brain and brainstem is performed without IV cont rast. FINDINGS: Diffusion weighted images demonstrate no evidence of a recent infarct or other diffusion abnormality. There is mild to moderate ventricular and sulcal prominence. There are multifocal areas of T2 hyperin tensity seen throughout the superficial, deep, and periventricular white matter. Findings are fairly confluent at the periventricular levels. T2 Star weighted images show no suspicious intraparenchymal blood products. T2 coronal weighted images show hippocampal gyri to appear symmetric and felt within normal limits. Midline structures demonstrate normal morphology. The craniocervical junction appears within normal limits. Normal vascular flow voids are present. The visualized sinuses are clear and the globes are i ntact. IMPRESSION: There is mild to moderate diffuse cerebral atrophy and moderate to borderline advanced no nspecific white matter changes which favor product of chronic small vessel ischemic change in patient of this age.
== END | disposition home or self-care (01) ==
LOC: RADMRIMAIN 16:29
PROVIDERS: ATTEND Psychiatry & Neurology Neurology
DX: G31.9 Degenerative disease of nervous system, unspecified (principal); I67.82 Cerebral ischemia; G40.909 Epilepsy, unspecified, not intractable, without status epilepticus
CPT/HCPCS: 70551

== ENCOUNTER 2023-06-22 18:34 | Emergency (ER) | payer MEDICARE, OTHER ==
[2023-06-22 18:56] VITALS: TEMP 97.4
[2023-06-22] MEDS ORDERED: LIDOCAINE 1% INJ 10MG/ML (20 ML MDV) SQ ONE (19:36)
[2023-06-22] MEDS ORDERED: DIPH,PERTUS(ACELL)TETVAC-LF 0.5 ML VIAL IM ONE (19:36)
[2023-06-22] MEDS ORDERED: BACITRACIN OINT 1 EACH PACKET TOPICAL ONE (19:50)
--- NOTE | 2023-06-22 19:51 | ED ---
Wound/Laceration HPI - General Chief Complaint: Wound/Laceration Stated Complaint: right hand laceration Time Seen by Provider: 06/22/23 19:23 Source: patient, RN notes reviewed Mode of arrival: ambulatory Limitations: no limitations - History of Present Illness Initial Comments: 73-year-old female presents emergency Department chief complaint right hand laceration. She states she was going to put some food into her fridge when she slipped striking her hand causing a laceration states she has no pain she's unsure last tetanus was. Patient denies any paresthesias or any other complaints. - Related Data Home Medications Medication Instructions Recorded Confirmed Azelastine HCl [Astelin Nasal 1 spray EA NOSTRIL BID PRN 11/26/21 12/24/21 [place]] Dulaglutide [Trulicity] 1.5 mg SQ FR 11/26/21 12/24/21 Empagliflozin [Jardiance] 25 mg PO DAILY 11/26/21 12/24/21 Ergocalciferol (Vitamin D2) 1,250 mcg PO MO 11/26/21 12/24/21 [Drisdol (50,000 Iu)] Levothyroxine Sodium [Synthroid] 75 mcg PO DAILY 11/26/21 12/24/21 Montelukast [Singulair] 10 mg PO DAILY 11/26/21 12/24/21 Omeprazole 40 mg PO BID 11/26/21 12/24/21 PARoxetine HCL 60 mg PO DAILY 11/26/21 12/24/21 Pioglitazone HCl 15 mg PO DAILY 11/26/21 12/24/21 lisinopriL [Zestril] 5 mg PO DAILY 11/26/21 12/24/21 metFORMIN HCL ER [Glucophage XR] 500 mg PO BID 11/26/21 12/23/21 Atorvastatin [Lipitor] 80 mg PO DAILY 12/02/21 12/24/21 Albuterol Sulfate [Proventil Hfa] 1 puff INHALATION Q4-6H PRN 12/23/21 12/23/21 Cetirizine HCl [Zyrtec] 10 mg PO DAILY PRN 12/23/21 12/24/21 EPINEPHrine (Auto Inject) [Epipen] 0.3 mg IM ONCE PRN 12/23/21 12/23/21 Flovent Hfa (Unknown Dose) 2 puff INHALATION DAILY 12/23/21 12/24/21 Lactase [Lactaid] 3,000 unit PO DIRECTED PRN 12/23/21 12/24/21 Loratadine [Claritin] 10 mg PO DAILY PRN 12/23/21 12/24/21 Stella Ambrocio (Unknown Dose) 1 tab PO DIRECTED PRN 12/23/21 12/24/21 Previous Rx's Medication Instructions Recorded Aspirin 81 mg PO DAILY 90 Days #90 tab 11/28/21 Clopidogrel [Plavix] 75 mg PO DAILY 90 Days #90 tab 11/28/21 Metoprolol Tartrate [Lopressor] 12.5 mg PO HS 90 Days #90 tab 11/28/21 Metoprolol Tartrate [Lopressor] 25 mg PO DAILY 90 Days #90 tab 11/28/21 Nitroglycerin Sl Tabs [Nitrostat] 0.4 mg SUBLINGUAL Q5M PRN #25 tab 11/28/21 Fenofibrate [Lofibra] 160 mg PO DAILY 60 Days #60 tab 12/04/21 Allergies Allergy/AdvReac Type Severity Reaction Status Date / Time morphine Allergy Swelling Verified 06/22/23 18:43 hydromorphone [From Dilaudid] AdvReac Hallucinati Verified 06/22/23 18:43 ons lorazepam [From Ativan] AdvReac Hallucinati Verified 06/22/23 18:43 ons Review of Systems ROS Statement: Those systems with pertinent positive or pertinent negative responses have been documented in the HPI. ROS Other: All systems not noted in ROS Statement are negative. Past Medical History Past Medical History: Blood Disorder, Diabetes Mellitus, GERD/Reflux, Hyperlipidemia, Hypertension, Myocardial Infarction ([place]), Sleep Apnea/CPAP/BIPAP, Thyroid Disorder Additional Past Medical History / Comment(s): See Dr Shay's H&P. Hypothy roidism. Exposed to black mold and 37 different fungus' in 1999, has had lung problems ever since. BetaThalssemia Trait. No CPAP use now. Varicose veins. Last Myocardial Infarction Date:: 11/26/21 History of Any Multi-Drug Resistant Organisms: None Reported Past Surgical History: Back Surgery, Heart Catheterization With Stent, Hysterectomy Additional Past Surgical History / Comment(s): Cataracts surgery. Carpal tunnel bilateral arms. Partial hysterectomy. Back surgery X3. 2 cardiac stents. Past Anesthesia/Blood Transfusion Reactions: No Reported Reaction Additional Past Anesthesia/Blood Transfusion Reaction / Comment(s): Pt denies receiving blood transfusion Date of Last Stent Placement:: 11/26/21 Past Psychological History: Anxiety, Depression Smoking Status: Former smoker Past Alcohol Use History: None Reported Past Drug Use History: None Reported - Past Family History Mother Additional Family Medical History / Comment(s): Alpha1 Antitrypsin (Enzyme) Deficiency. . Father Family Medical History: Cancer, Congestive Heart Failure (CHF) Additional Family Medical History / Comment(s): Skin cancer. Open heart surgery, from complications. General Exam Limitations: no limitations General appearance: alert, in no apparent distress Head exam: Present: atraumatic, normocephalic, normal inspection Respiratory exam: Present: normal lung sounds bilaterally. Absent: respiratory distress, wheezes, rales, rhonchi, stridor Cardiovascular Exam: Present: regular rate, normal rhythm, normal heart sounds. Absent: systolic murmur, diastolic murmur, rubs, gallop, clicks Extremities exam: Present: other (Right hand to the fourth and fifth digit there is a 3 cm laceration) Course Vital Signs 06/22/23 18:39 Temperature 97.4 F L Pulse Rate 79 Respiratory 20 Rate Blood Pressure 160/66 O2 Sat by Pulse 96 Oximetry Procedures - Laceration Laceration #1 Consent Obtained: verbal consent Indication: laceration Site: hand (Right) Size (cm): 3 Description: irregular Depth: simple, single layer Anesthetic Used: lidocaine 1%, without epi Anesthesia Technique: local infiltration Amount (mls): 3 Pre-repair: wound explored, irrigated extensively, deep structures intact Type of Sutures: nylon Size of Sutures: 4-0 Number of Sutures: 4 Technique: simple, interrupted Patient Tolerated Procedure: well, no complications Medical Decision Making - Medical Decision Making Was pt. sent in by a medical professional or institution (, [place], MEDICAID BILLER, urgent care, hospital, or [facility]...) When possible be specific @ -No Did you speak to anyone other than the patient for history (EMS, parent, family, police, friend...)? What history was obtained from this source @ -No Did you review nursing and triage notes (agree or disagree)? Why? @ -I reviewed and agree with nursing and triage notes Were old charts reviewed (outside hosp., previous admission, EMS record, old EKG, old radiological studies, urgent care reports/EKG's, [facility] records)? Report findings @ -No old charts were reviewed Differential Diagnosis (chest pain, altered mental status, abdominal pain women, abdominal pain men, vaginal bleeding, weakness, fever, dyspnea, syncope, headache, dizziness, GI bleed, back pain, seizure, CVA, palpatations, mental health, musculoskeletal)? @ -hand laceration, hand contusion EKG interpreted by me (3pts min.). @ -None X-rays interpreted by me (1pt min.). @ -None done CT interpreted by me (1pt min.). @ -None done U/S interpreted by me (1pt. min.). @ -None done What testing was considered but not performed or refused? (CT, X-rays, U/S, labs)? Why? @ -None What meds were considered but not given or refused? Why? @ -None Did you discuss the management of the patient with other professionals (professionals i.e. , [place], MEDICAID BILLER, lab, RT, psych nurse, social media marketer, cash van salesperson, teacher, police commanding officer, case repairer)? Give summary @ -No Was smoking cessation discussed for >3mins.? @ -No Was critical care preformed (if so, how long)? @ -No Were there social determinants of health that impacted care today? How? (Homelessness, low income, unemployed, alcoholism, drug addiction, transportation, low edu. Level, literacy, decrease access to med. care, snf, rehab)? @ -No Was there de-escalation of care discussed even if they declined (Discuss DNR or withdrawal of care, Hospice)? DNR status @ -No What co-morbidities impacted this encounter? (DM, HTN, Smoking, COPD, CAD, Cancer, CVA, ARF, Chemo, Hep., AIDS, mental health diagnosis, sleep apnea, morbid obesity)? @ -None Was patient admitted / discharged? Hospital course, mention meds given and route, prescriptions, significant lab abnormalities, going to OR and other pertinent info. @ -Discharge laceration was repaired tetanus is updated discharge stable condition with wound care instructions Undiagnosed new problem with uncertain prognosis? @ -No Drug Therapy requiring intensive monitoring for toxicity (Heparin, Nitro, Insulin, Cardizem)? @ -No Were any procedures done? @ -No Diagnosis/symptom? @ -Right hand laceration Acute, or Chronic, or Acute on Chronic? @ -Acute Uncomplicated (without systemic symptoms) or Complicated (systemic symptoms)? @ -Uncomplicated Side effects of treatment? @ -No Exacerbation, Progression, or Severe Exacerbation? @ -No Poses a threat to life or bodily function? How? (Chest pain, [place], [place], pneumonia, PE, COPD, DKA, ARF, appy, cholecystitis, CVA, Diverticulitis, Homicidal, Suicidal, threat to staff... and all critical care pts) @ -No Disposition Clinical Impression: Laceration of right hand Disposition: HOME SELF-CARE Condition: Stable Instructions (If sedation given, give patient instructions): Care For Your Stitches (ED), Laceration (ED) Additional Instructions: Please return to the Emergency Department if symptoms worsen or any other concerns. Have sutures removed in 10 days. Is patient prescribed a controlled substance at d/c from ED?: No Referrals: Víctor Salamanca MD [Primary Care Provider] - 1-2 days Time of Disposition: 19:51
[2023-06-22 20:21] VITALS: BP 134/76; PULSE 73; RESP 16
== END 2023-06-22 20:17 | disposition home or self-care (01) ==
LOC: EC 18:34
DX: S61.411A Laceration without foreign body of right hand, initial encounter (principal); E03.9 Hypothyroidism, unspecified; E11.36 Type 2 diabetes mellitus with diabetic cataract; E78.5 Hyperlipidemia, unspecified; F41.9 Anxiety disorder, unspecified; F32.A Depression, unspecified; I10 Essential (primary) hypertension; I25.2 Old myocardial infarction; K21.9 Gastro-esophageal reflux disease without esophagitis; G47.30 Sleep apnea, unspecified; Z79.890 Hormone replacement therapy; Z79.899 Other long term (current) drug therapy; Z23 Encounter for immunization; Z79.84 Long term (current) use of oral hypoglycemic drugs; Z87.891 Personal history of nicotine dependence; Z95.5 Presence of coronary angioplasty implant and graft; Z88.5 Allergy status to narcotic agent; Z88.8 Allergy status to other drugs, medicaments and biological substances; W22.8XXA Striking against or struck by other objects, initial encounter
CPT/HCPCS: 12002; 99282; 90715; 90471; J2001; 96372

== ENCOUNTER 2023-08-03 00:03 | Emergency (ER) | payer MEDICARE, OTHER ==
[2023-08-03 00:18] VITALS: RESP 18; TEMP 97.8
--- NOTE | 2023-08-03 00:54 | ED ---
Arrhythmia/Palpitations HPI - General Chief Complaint: Arrhythmia/Palpitations Stated Complaint: Heart Palpitations Time Seen by Provider: 08/03/23 00:14 Source: patient Mode of arrival: wheelchair Limitations: no limitations - History of Present Illness Initial Comments: 73-year-old female with past medical history of diabetes, hypertension, hyperlipidemia who presents to the emergency department reporting palpitations. States that she had some palpitations when she attempted to lay down at night. The symptoms eventually relaxed however she did have return tonight when she attempted to go to sleep. States as if she feels like her heart is pausing and then beating extremely fast. She does take metoprolol. States that she has been taking her daily dose without any missed doses. He denies associated chest pain. Follows with Dr. Shay. No history of irregular heart rhythms. No history of coronary disease. She denies recent illnesses. Does have a history of hypothyroidism. No other alleviating, precipitating or modifying factors - Related Data Home Medications Medication Instructions Recorded Confirmed Azelastine HCl [Astelin Nasal 1 spray EA NOSTRIL BID PRN 11/26/21 12/24/21 [place]] Dulaglutide [Trulicity] 1.5 mg SQ FR 11/26/21 12/24/21 Empagliflozin [Jardiance] 25 mg PO DAILY 11/26/21 12/24/21 Ergocalciferol (Vitamin D2) 1,250 mcg PO MO 11/26/21 12/24/21 [Drisdol (50,000 Iu)] Levothyroxine Sodium [Synthroid] 75 mcg PO DAILY 11/26/21 12/24/21 Montelukast [Singulair] 10 mg PO DAILY 11/26/21 12/24/21 Omeprazole 40 mg PO BID 11/26/21 12/24/21 PARoxetine HCL 60 mg PO DAILY 11/26/21 12/24/21 Pioglitazone HCl 15 mg PO DAILY 11/26/21 12/24/21 lisinopriL [Zestril] 5 mg PO DAILY 11/26/21 12/24/21 metFORMIN HCL ER [Glucophage XR] 500 mg PO BID 11/26/21 12/23/21 Atorvastatin [Lipitor] 80 mg PO DAILY 12/02/21 12/24/21 Albuterol Sulfate [Proventil Hfa] 1 puff INHALATION Q4-6H PRN 12/23/21 12/23/21 Cetirizine HCl [Zyrtec] 10 mg PO DAILY PRN 12/23/21 12/24/21 EPINEPHrine (Auto Inject) [Epipen] 0.3 mg IM ONCE PRN 12/23/21 12/23/21 Flovent Hfa (Unknown Dose) 2 puff INHALATION DAILY 12/23/21 12/24/21 Lactase [Lactaid] 3,000 unit PO DIRECTED PRN 12/23/21 12/24/21 Loratadine [Claritin] 10 mg PO DAILY PRN 12/23/21 12/24/21 Tessalon Perles (Unknown Dose) 1 tab PO DIRECTED PRN 12/23/21 12/24/21 Previous Rx's Medication Instructions Recorded Aspirin 81 mg PO DAILY 90 Days #90 tab 11/28/21 Clopidogrel [Plavix] 75 mg PO DAILY 90 Days #90 tab 11/28/21 Metoprolol Tartrate [Lopressor] 12.5 mg PO HS 90 Days #90 tab 11/28/21 Metoprolol Tartrate [Lopressor] 25 mg PO DAILY 90 Days #90 tab 11/28/21 Nitroglycerin Sl Tabs [Nitrostat] 0.4 mg SUBLINGUAL Q5M PRN #25 tab 11/28/21 Fenofibrate [Lofibra] 160 mg PO DAILY 60 Days #60 tab 12/04/21 Allergies Allergy/AdvReac Type Severity Reaction Status Date / Time morphine Allergy Swelling Verified 08/03/23 00:08 hydromorphone [From Dilaudid] AdvReac Hallucinati Verified 08/03/23 00:08 ons lorazepam [From Ativan] AdvReac Hallucinati Verified 08/03/23 00:08 ons Review of Systems ROS Statement: Those systems with pertinent positive or pertinent negative responses have been documented in the HPI. ROS Other: All systems not noted in ROS Statement are negative. Past Medical History Past Medical History: Blood Disorder, Diabetes Mellitus, GERD/Reflux, Hyperlipidemia, Hypertension, Myocardial Infarction ([place]), Sleep Apnea/CPAP/BIPAP, Thyroid Disorder Additional Past Medical History / Comment(s): See Dr Shay's H&P. Hypothyroidism. Exposed to black mold and 37 different fungus' in 1999, has had lung problems ever since. BetaThalssemia Trait. No CPAP use now. Varicose veins. Last Myocardial Infarction Date:: 11/26/21 History of Any Multi-Drug Resistant Organisms: None Reported Past Surgical History: Back Surgery, Heart Catheterization With Stent, Hysterectomy Additional Past Surgical History / Comment(s): Cataracts surgery. Carpal tunnel bilateral arms. Partial hysterectomy. Back surgery X3. 2 cardiac stents. Past Anesthesia/Blood Transfusion Reactions: No Reported Reaction Additional Past Anesthesia/Blood Transfusion Reaction / Comment(s): Pt denies receiving blood transfusion Date of Last Stent Placement:: 11/26/21 Past Psychological History: Anxiety, Depression Smoking Status: Former smoker Past Alcohol Use History: None Reported Past Drug Use History: None Reported - Past Family History Mother Additional Family Medical History / Comment(s): Alpha1 Antitrypsin (Enzyme) Deficiency. . Father Family Medical History: Cancer, Congestive Heart Failure (CHF) Additional Family Medical History / Comment(s): Skin cancer. Open heart surgery, from complications. General Exam Limitations: no limitations General appearance: alert, in no apparent distress Head exam: Present: atraumatic, normocephalic, normal inspection Eye exam: Present: normal appearance, PERRL, EOMI. Absent: scleral icterus, conjunctival injection, periorbital swelling ENT exam: Present: normal exam, mucous membranes moist Neck exam: Present: normal inspection. Absent: tenderness, meningismus, lymphadenopathy Respiratory exam: Present: normal lung sounds bilaterally. Absent: respiratory distress, wheezes, rales, rhonchi, stridor Cardiovascular Exam: Present: regular rate, normal rhythm, normal heart sounds. Absent: systolic murmur, diastolic murmur, rubs, gallop, clicks GI/Abdominal exam: Present: soft, normal bowel sounds. Absent: distended, tenderness, guarding, rebound, rigid Extremities exam: Present: normal inspection, full ROM, normal capillary refill. Absent: tenderness, pedal edema, joint swelling, calf tenderness Back exam: Present: normal inspection Neurological exam: Present: alert, oriented X3, CN II-XII intact Psychiatric exam: Present: normal affect, normal mood Skin exam: Present: warm, dry, intact, normal color. Absent: rash Course Vital Signs 08/03/23 08/03/23 08/03/23 00:08 01:10 02:10 Temperature 97.8 F Pulse Rate 80 70 68 Respiratory 18 18 18 Rate Blood Pressure 182/90 156/72 137/63 O2 Sat by Pulse 98 97 97 Oximetry Medical Decision Making - Medical Decision Making Was pt. sent in by a medical professional or institution (CHUCK Sharif, [employer] ARCHITECT, urgent care, hospital, or retirement...) When possible be specific @ -No Did you speak to anyone other than the patient for history (EMS, parent, family, police, friend...)? What history was obtained from this source @ -No Did you review nursing and triage notes (agree or disagree)? Why? @ -I reviewed and agree with nursing and triage notes Were old charts reviewed (outside hosp., previous admission, EMS record, old EKG, old radiological studies, urgent care reports/EKG's, retirement records)? Report findings @ -No old charts were reviewed Differential Diagnosis (chest pain, altered mental status, abdominal pain women, abdominal pain men, vaginal bleeding, weakness, fever, dyspnea, syncope, headache, dizziness, GI bleed, back pain, seizure, CVA, palpatations, mental health, musculoskeletal)? @ -Differential Palpitations Ventricular arrhythmias, atrial arrhythmias, myocardial infarction, anemia, thyrotoxicosis, electrolyte imbalance, hypokalemia, pulmonary embolism, pulmonary disease, drugs, alcohol, anxiety, stress.... This is not meant to be an all-inclusive list. EKG interpreted by me (3pts min.). @ -Yes and demonstrates sinus rhythm with a rate of 75. VA interval 204. QRS 98. QTC of 428. No acute ST segment elevations or depressions X-rays interpreted by me (1pt min.). @ -Yes and demonstrates no acute process CT interpreted by me (1pt min.). @ -None done U/S interpreted by me (1pt. min.). @ -None done What testing was considered but not performed or refused? (CT, X-rays, U/S, labs)? Why? @ -None What meds were considered but not given or refused? Why? @ -None Did you discuss the management of the patient with other professionals (toby sawyer i.e. CHUCK Sharif, [employer] ARCHITECT, lab, RT, psych nurse, clinical social worker, gas tester, teacher, senior major gifts officer, family service caseworker)? Give summary @ -No Was smoking cessation discussed for >3mins.? @ -No Was critical care preformed (if so, how long)? @ -No Were there social determinants of health that impacted care today? How? (Homelessness, low income, unemployed, alcoholism, drug addiction, transportatio n, low edu. Level, literacy, decrease access to med. care, snf, rehab)? @ -No Was there de-escalation of care discussed even if they declined (Discuss DNR or withdrawal of care, Hospice)? DNR status @ -No What co-morbidities impacted this encounter? (DM, HTN, Smoking, COPD, CAD, Cancer, CVA, ARF, Chemo, Hep., AIDS, mental health diagnosis, sleep apnea, morbid obesity)? @ -hypothyroidism, hypertension Was patient admitted / discharged? Hospital course, mention meds given and route, prescriptions, significant lab abnormalities, going to OR and other pertinent info. @ -Upon arrival patient was placed into room 4. A thorough history and physical exam was performed. Patient is placed on continuous pulse ox and cardiac monitoring. 12-lead EKG was obtained. Laboratory studies are conducted. Patient does go for chest x-ray. She remains on telemetry monito ring for 2 hours. It is identified that the patient is having PVCs. These PVCs do correlate when the patient is having some chest discomfort. I did discuss this diagnosis with the patient. This time she is stable for discharge home. Instructed to call her digital data analyst to discuss the PVCs and possible medication changes. Return for any new or worsening symptoms per patient was agreeable and discharged in stable condition Undiagnosed new problem with uncertain prognosis? @ -No Drug Therapy requiring intensive monitoring for toxicity (Heparin, Nitro, Insulin, Cardizem)? @ -No Were any procedures done? @ -No Diagnosis/symptom? @ -Acute palpitations Acute, or Chronic, or Acute on Chronic? @ -Acute Uncomplicated (without systemic symptoms) or Complicated (systemic symptoms)? @ -Complicated Side effects of treatment? @ -No Exacerbation, Progression, or Severe Exacerbation? @ -No Poses a threat to life or bodily function? How? (Chest pain, [place], [place], pneumonia, PE, COPD, DKA, ARF, appy, cholecystitis, CVA, Diverticulitis, Homicidal, Suicidal, threat to staff... and all critical care pts) @ -No - Lab Data Result diagrams: 08/03/23 00:50 08/03/23 00:50 Lab Results 08/03/23 08/03/23 08/03/23 Range/Units 00:50 00:50 00:50 WBC 11.2 H (3.8-10.6) k/uL RBC 5.08 (3.80-5.40) m/uL Hgb 10.7 L (11.4-16.0) gm/dL Hct 33.5 L (34.0-46.0) % MCV 66.0 L (80.0-100.0) fL MCH 21.1 L (25.0-35.0) pg MCHC 31.9 (31.0-37.0) g/dL RDW 15.7 H (11.5-15.5) % Plt Count 218 (150-450) k/uL MPV 7.7 Neutrophils % 50 % Lymphocytes % 40 % Monocytes % 5 % Eosinophils % 2 % Basophils % 1 % Neutrophils # 5.6 (1.3-7.7) k/uL Lymphocytes # 4.4 (1.0-4.8) k/uL Monocytes # 0.6 (0-1.0) k/uL Eosinophils # 0.2 (0-0.7) k/uL Basophils # 0.1 (0-0.2) k/uL Hypochromasia Moderate Poikilocytosis Slight Microcytosis Marked PT 10.1 (10.0-12.5) sec INR 0.9 (<1.2) APTT 23.2 (22.0-30.0) sec Sodium 138 (137-145) mmol/L Potassium 3.5 (3.5-5.1) mmol/L Chloride 103 (98-107) mmol/L Carbon Dioxide 23 (22-30) mmol/L Anion Gap 12 mmol/L BUN 9 (7-17) mg/dL Creatinine 0.68 (0.52-1.04) mg/dL Est GFR (CKD-EPI)AfAm >90 (>60 ml/min/1.73 sqM) Est GFR (CKD-EPI)NonAf 87 (>60 ml/min/1.73 sqM) Glucose 137 H (74-99) mg/dL Calcium 9.1 (8.4-10.2) mg/dL Magnesium 1.7 (1.6-2.3) mg/dL Total Bilirubin 0.4 (0.2-1.3) mg/dL AST 20 (14-36) U/L ALT 13 (4-34) U/L Alkaline Phosphatase 68 (38-126) U/L Troponin I (0.000-0.034) ng/mL Total Protein 6.8 (6.3-8.2) g/dL Albumin 4.0 (3.5-5.0) g/dL TSH 1.130 (0.465-4.680) mIU/L 08/03/23 Range/Units 00:50 WBC (3.8-10.6) k/uL RBC (3.80-5.40) m/uL Hgb (11.4-16.0) gm/dL Hct (34.0-46.0) % MCV (80.0-100.0) fL MCH (25.0-35.0) pg MCHC (31.0-37.0) g/dL RDW (11.5-15.5) % Plt Count (150-450) k/uL MPV Neutrophils % % Lymphocytes % % Monocytes % % Eosinophils % % Basophils % % Neutrophils # (1.3-7.7) k/uL Lymphocytes # (1.0-4.8) k/uL Monocytes # (0-1.0) k/uL Eosinophils # (0-0.7) k/uL Basophils # (0-0.2) k/uL Hypochromasia Poikilocytosis Microcytosis PT (10.0-12.5) sec INR (<1.2) APTT (22.0-30.0) sec Sodium (137-145) mmol/L Potassium (3.5-5.1) mmol/L Chloride (98-107) mmol/L Carbon Dioxide (22-30) mmol/L Anion Gap mmol/L BUN (7-17) mg/dL Creatinine (0.52-1.04) mg/dL Est GFR (CKD-EPI)AfAm (>60 ml/min/1.73 sqM) Est GFR (CKD-EPI)NonAf (>60 ml/min/1.73 sqM) Glucose (74-99) mg/dL Calcium (8.4-10.2) mg/dL Magnesium (1.6-2.3) mg/dL Total Bilirubin (0.2-1.3) mg/dL AST (14-36) U/L ALT (4-34) U/L Alkaline Phosphatase (38-126) U/L Troponin I <0.012 (0.000-0.034) ng/mL Total Protein (6.3-8.2) g/dL Albumin (3.5-5.0) g/dL TSH (0.465-4.680) mIU/L Disposition Clinical Impression: Palpitations Disposition: HOME SELF-CARE Condition: Stable Instructions (If sedation given, give patient instructions): Heart Palpitations (ED) Additional Instructions: Please call your digital data analyst in the morning. Return for any new or worsening symptoms Is patient prescribed a controlled substance at d/c from ED?: No Referrals: Víctor Salamanca MD [Primary Care Provider] - 1-2 days Dre Shay MD [STAFF PHYSICIAN] - 1-2 days Time of Disposition: 02:47
[2023-08-03 01:18] LABS: Basophils # (A) 0.1 k/uL (0-0.2); Basophils % (A) 1 %; Eosinophils # (A) 0.2 k/uL (0-0.7); Eosinophils % (A) 2 %; HCT 33.5 % (34.0-46.0); HGB 10.7 gm/dL (11.4-16.0); Hypochromasia Moderate; Lymphocytes # (A) 4.4 k/uL (1.0-4.8); Lymphocytes % (A) 40 %; MCH 21.1 pg (25.0-35.0); MCHC 31.9 g/dL (31.0-37.0); Mean Platelet Volume 7.7; Microcytosis Marked; Monocytes # (A) 0.6 k/uL (0-1.0); Monocytes % (A) 5 %; Neutrophils # (A) 5.6 k/uL (1.3-7.7); Neutrophils % (A) 50 %; Platelet Count 218 k/uL (150-450); Poikilocytosis Slight; RBC 5.08 m/uL (3.80-5.40); RDW 15.7 % (11.5-15.5); WBC 11.2 k/uL (3.8-10.6)
[2023-08-03 01:27] LABS: ALT 13 U/L (4-34); AST 20 U/L (14-36); African American GFR (CKD) >90 (>60 ml/min/1.73 sqM); Alkaline Phosphatase 68 U/L (38-126); Anion Gap 12 mmol/L; Blood Urea Nitrogen 9 mg/dL (7-17); Calcium 9.1 mg/dL (8.4-10.2); Carbon Dioxide 23 mmol/L (22-30); Chloride 103 mmol/L (98-107); Glucose 137 mg/dL (74-99); Magnesium 1.7 mg/dL (1.6-2.3); Non-African American GFR(CKD) 87 (>60 ml/min/1.73 sqM); Potassium 3.5 mmol/L (3.5-5.1); Sodium 138 mmol/L (137-145); Total Bilirubin 0.4 mg/dL (0.2-1.3); Total Protein 6.8 g/dL (6.3-8.2)
[2023-08-03 01:30] LABS: INR 0.9 (<1.2); Partial Thromboplastin Time 23.2 sec (22.0-30.0); Prothrombin Time 10.1 sec (10.0-12.5)
[2023-08-03 03:10] VITALS: BP 137/63; PULSE 68
--- NOTE | 2023-08-03 04:44 | XR ---
EXAM: XR Chest, 2 Views CLINICAL HISTORY: ITS.REASON XR Reason: dysrhythmia TECHNIQUE: Frontal and lateral views of the chest. COMPARISON: XR Chest dated 12/02/2021 FINDINGS: Lungs: Unremarkable. No consolidation. Pleural space: Unremarkable. No pneumothorax. Heart: Unremarkable. No cardiomegaly. Mediastinum: Unremarkable. Normal mediastinal contour. Bones/joints: Unremarkable. No acute fracture. IMPRESSION: No evidence of acute cardiopulmonary disease.
== END 2023-08-03 02:55 | disposition home or self-care (01) ==
LOC: EC 00:03
DX: R00.2 Palpitations (principal); E03.9 Hypothyroidism, unspecified; E11.36 Type 2 diabetes mellitus with diabetic cataract; E78.5 Hyperlipidemia, unspecified; F32.A Depression, unspecified; F41.9 Anxiety disorder, unspecified; G47.30 Sleep apnea, unspecified; I10 Essential (primary) hypertension; I25.2 Old myocardial infarction; K21.9 Gastro-esophageal reflux disease without esophagitis; Z79.51 Long term (current) use of inhaled steroids; Z79.84 Long term (current) use of oral hypoglycemic drugs; Z79.890 Hormone replacement therapy; Z79.899 Other long term (current) drug therapy; Z87.891 Personal history of nicotine dependence; Z88.5 Allergy status to narcotic agent; Z88.8 Allergy status to other drugs, medicaments and biological substances; Z95.5 Presence of coronary angioplasty implant and graft
CPT/HCPCS: 36415; 71046; 80053; 83735; 84443; 84484; 85025; 85610; 85730; 93005; 99285

== ENCOUNTER → 2023-08-27 | Outpatient (CLI) | payer MEDICARE, OTHER ==
[~2023-08-27] MED LIST changes: -ALPRAZolam 0.25 MG TAB PO PRN; -ALPRAZolam 0.5 MG TAB PO PRN; -ASPIRIN 325 MG TAB PO ONE; -ATORVASTATIN 80 MG TAB PO ONE; -HEPARIN SODIUM,PORCINE 10,000 UNIT in SODIUM CHLORIDE 0.9% 1,000 ML IRRIGATION PRN; -HEPARIN SODIUM,PORCINE 2,500 UNIT in SODIUM CHLORIDE 0.9% 250 ML IRRIGATION PRN; -NITROGLYCERIN SL TABS 0.4 MG TAB SUBLINGUAL PRN; -SODIUM CHLORIDE 0.9% 1,000 ML in EMPTY BAG 1 BAG IV SCH; +SODIUM CHLORIDE 0.9% 500 ML 500 ML in EMPTY BAG 1 BAG IV PRN; +ZOLEDRONIC ACID 5 MG in SODIUM CHLORIDE 0.9% 100 ML IV NR
[2023-08-27 14:50] VITALS: BP 171/75; PULSE 70; RESP 15; TEMP 97.5
== END ==
LOC: PROCWHC3 14:15
PROVIDERS: ATTEND Internal Medicine
DX: M85.80 Other specified disorders of bone density and structure, unspecified site (principal)
CPT/HCPCS: 96365; J3489

== ENCOUNTER 2024-08-02 16:35 | Emergency (ER) | payer MEDICARE, OTHER ==
--- NOTE | 2024-08-02 17:07 | ED ---
General Adult HPI - General Chief complaint: Head Injury Stated complaint: Fall/R facial bruising/bilateral knee pain/bruisin Time Seen by Provider: 08/02/24 17:00 Source: patient, RN notes reviewed Mode of arrival: wheelchair Limitations: no limitations - History of Present Illness Initial comments: Quick note: 74-year-old female presents to the emergency department for evaluation of fall. Patient states that she took a fall on Thursday because her dog tripped her. She states that she also fell again on Thursday when she tripped in her house. She reports hitting her head/face both times. She did not lose consciousness. She denies any blood thinners. She notes that she fell on her knees and she is having pain in both of but worse on the left. She is unable to bear weight due to the pain. - Related Data Home Medications Medication Instructions Recorded Confirmed Azelastine HCl [Astelin Nasal 1 spray EA NOSTRIL BID PRN 11/26/21 08/27/23 [place]] Dulaglutide [Trulicity] 1.5 mg SQ FR 11/26/21 08/27/23 Empagliflozin [Jardiance] 25 mg PO DAILY 11/26/21 08/27/23 Ergocalciferol (Vitamin D2) 1,250 mcg PO MO 11/26/21 08/27/23 [Drisdol (50,000 Iu)] Levothyroxine Sodium [Synthroid] 75 mcg PO DAILY 11/26/21 08/27/23 Montelukast [Singulair] 10 mg PO DAILY 11/26/21 08/27/23 Omeprazole 40 mg PO BID 11/26/21 08/27/23 PARoxetine HCL 60 mg PO DAILY 11/26/21 08/27/23 Pioglitazone HCl 15 mg PO DAILY 11/26/21 08/27/23 lisinopriL [Zestril] 5 mg PO DAILY 11/26/21 08/27/23 metFORMIN HCL ER [Glucophage XR] 500 mg PO BID 11/26/21 08/27/23 Atorvastatin [Lipitor] 80 mg PO DAILY 12/02/21 08/27/23 Albuterol Sulfate [Proventil Hfa] 1 puff INHALATION Q4-6H PRN 12/23/21 08/27/23 Cetirizine HCl [Zyrtec] 10 mg PO DAILY PRN 12/23/21 08/27/23 EPINEPHrine (Auto Inject) [Epipen] 0.3 mg IM ONCE PRN 12/23/21 08/27/23 Flovent Hfa (Unknown Dose) 2 puff INHALATION DAILY 12/23/21 08/27/23 Lactase [Lactaid] 3,000 unit PO DIRECTED PRN 12/23/21 08/27/23 Loratadine [Claritin] 10 mg PO DAILY PRN 12/23/21 08/27/23 Tesveronica Ambrocio (Unknown Dose) 1 tab PO DIRECTED PRN 12/23/21 08/27/23 Previous Rx's Medication Instructions Recorded Aspirin 81 mg PO DAILY 90 Days #90 tab 11/28/21 Clopidogrel [Plavix] 75 mg PO DAILY 90 Days #90 tab 11/28/21 Metoprolol Tartrate [Lopressor] 12.5 mg PO HS 90 Days #90 tab 11/28/21 Metoprolol Tartrate [Lopressor] 25 mg PO DAILY 90 Days #90 tab 11/28/21 Nitroglycerin Sl Tabs [Nitrostat] 0.4 mg SUBLINGUAL Q5M PRN #25 tab 11/28/21 Fenofibrate [Lofibra] 160 mg PO DAILY 60 Days #60 tab 12/04/21 Allergies Allergy/AdvReac Type Severity Reaction Status Date / Time morphine Allergy Swelling Verified 08/02/24 16:57 hydromorphone [From Dilaudid] AdvReac Hallucinati Verified 08/02/24 16:57 ons lorazepam [From Ativan] AdvReac Hallucinati Verified 08/02/24 16:57 ons Review of Systems ROS Statement: Those systems with pertinent positive or pertinent negative responses have been documented in the HPI. ROS Other: All systems not noted in ROS Statement are negative. Past Medical History Past Medical History: Blood Disorder, Diabetes Mellitus, GERD/Reflux, Hyperlipidemia, Hypertension, Myocardial Infarction ([place]), Sleep Apnea/CPAP/BIPAP, Thyroid Disorder Additional Past Medical History / Comment(s): See Dr Shay's H&P. Hypothyroidism. Exposed to black mold and 37 different fungus' in 1999, has had lung problems ever since. BetaThalssemia Trait. No CPAP use now. Varicose veins. Last Myocardial Infarction Date:: 11/26/21 History of Any Multi-Drug Resistant Organisms: None Reported Past Surgical History: Back Surgery, Heart Catheterization With Stent, Hysterectomy Additional Past Surgical History / Comment(s): Cataracts surgery. Carpal tunnel bilateral arms. Partial hysterectomy. Back surgery X3. 2 cardiac stents. Past Anesthesia/Blood Transfusion Reactions: No Reported Reaction Additional Past Anesthesia/Blood Transfusion Reaction / Comment(s): Pt denies receiving blood transfusion Date of Last Stent Placement:: 11/26/21 Past Psychological History: Anxiety, Depression Smoking Status: Former smoker Past Alcohol Use History: None Reported Past Drug Use History: None Reported - Past Family History Mother Additional Family Medical History / Comment(s): Alpha1 Antitrypsin (Enzyme) Deficiency. . Father Family Medical History: Cancer, Congestive Heart Failure (CHF) Additional Family Medical History / Comment(s): Skin cancer. Open heart surgery, from complications. General Exam - General Exam Comments Initial Comments: Visual Physical Exam Vital signs reviewed General: Well-appearing, nontoxic, no acute distress. Head: Normocephalic, atraumatic Eyes: PERRLA, EOMI ENT: Airway patent Chest: Nonlabored breathing Skin: No visual rash, normal skin tone Neuro: Alert and oriented 3 Musculoskeletal: No gross abnormalities Limitations: no limitations General appearance: alert, in no apparent distress Head exam: Present: other (Ecchymosis to the right periorbital region, upper lip) Eye exam: Present: PERRL, EOMI. Absent: scleral icterus, conjunctival injection, periorbital swelling ENT exam: Present: normal exam, mucous membranes moist Neck exam: Present: normal inspection. Absent: tenderness, meningismus, lymphadenopathy Respiratory exam: Present: normal lung sounds bilaterally. Absent: respiratory distress, wheezes, rales, rhonchi, stridor Cardiovascular Exam: Present: regular rate, normal rhythm, normal heart sounds. Absent: systolic murmur, diastolic murmur, rubs, gallop, clicks Extremities exam: Present: tenderness (Anterior left knee), normal capillary refill, other (DP and PT pulses 2+). Absent: full ROM (Decreased range of motion with flexion of the left knee, extension of the left knee), pedal edema, joint swelling, calf tenderness Neurological exam: Present: alert, oriented X3 Psychiatric exam: Present: normal affect, normal mood Skin exam: Present: warm, dry, intact, normal color. Absent: rash Course Vital Signs 08/02/24 08/02/24 16:53 19:49 Temperature 98.0 F 98.5 F Pulse Rate 69 70 Respiratory 18 16 Rate Blood Pressure 160/94 163/82 O2 Sat by Pulse 98 99 Oximetry Medical Decision Making - Medical Decision Making Quick note preformed and electronically signed by KAISER WallaceC Was pt. sent in by a medical professional or institution (CHUCK Sharif, PHYSICAL SECURITY SPECIALIST, urgent care, hospital, or assisted...) When possible be specific @ -No Did you speak to anyone other than the patient for history (EMS, parent, family, police, friend...)? What history was obtained from this source @ -No Did you review nursing and triage notes (agree or disagree)? Why? @ -I reviewed and agree with nursing and triage notes Were old charts reviewed (outside hosp., previous admission, EMS record, old EKG, old radiological studies, urgent care reports/EKG's, assisted records)? Report findings @ -No old charts were reviewed Differential Diagnosis (chest pain, altered mental status, abdominal pain women, abdominal pain men, vaginal bleeding, weakness, fever, dyspnea, syncope, heada rajan, dizziness, GI bleed, back pain, seizure, CVA, palpatations, mental health, musculoskeletal)? @ -Differential Musculoskeletal Muscular strain, contusion, ligament sprain, fracture, arthritis, septic arthritis, bursitis, cellulitis, muscle spasm, nerve compression, DVT, arterial occlusion, herpes zoster, electrolyte abnormality, tumor.... This is not meant to be in all inclusive list EKG interpreted by me (3pts min.). @ -None X-rays interpreted by me (1pt min.). @ -X-ray of the left knee shows fracture of the Mid superior patella with adjacent moderate to large suprapatellar knee joint effusion CT interpreted by me (1pt min.). @ -CT of the brain and C-spine shows no evidence of acute intracranial process, no evidence of acute fracture or traumatic malalignment U/S interpreted by me (1pt. min.). @ -None done What testing was considered but not performed or refused? (CT, X-rays, U/S, labs)? Why? @ -None What meds were considered but not given or refused? Why? @ -None Did you discuss the management of the patient with other professionals (professionals i.e. , PA, PHYSICAL SECURITY SPECIALIST, lab, RT, psych nurse, social work manager, geological scout, teacher, armed security officer, case planner)? Give summary @ -Case was discussed with Dr. Perry with [facility] as the patient is a patient of his. Advised follow up in the office, knee immobilizer. Was smoking cessation discussed for >3mins.? @ -No Was critical care preformed (if so, how long)? @ -No Were there social determinants of health that impacted care today? How? (Homelessness, low income, unemployed, alcoholism, drug addiction, collins sportation, low edu. Level, literacy, decrease access to med. care, penitentiary, rehab)? @ -No Was there de-escalation of care discussed even if they declined (Discuss DNR or withdrawal of care, Hospice)? DNR status @ -No What co-morbidities impacted this encounter? (DM, HTN, Smoking, COPD, CAD, Cancer, CVA, ARF, Chemo, Hep., AIDS, mental health diagnosis, sleep apnea, morbid obesity)? @ -None Was patient admitted / discharged? Hospital course, mention meds given and route, prescriptions, significant lab abnormalities, going to OR and other pertinent info. @ -Discharge. Patient presented to the emergency department for evaluation of fall, head injury, knee injury. X-ray of the left knee shows an acute fracture of the mid superior patella with adjacent moderate to large suprapatellar joint effusion. CT brain and C-spine shows no evidence of acute process. Orthopedics was contacted for the findings of the x-ray. She will be placed in a knee immobilizer, advised to utilize her walker at home and and advised to follow-up with orthopedics. She is understanding and agreeable with this plan. Patient stable at time of discharge. Case discussed with Dr. Mccarthy Undiagnosed new problem with uncertain prognosis? @ -No Drug Therapy requiring intensive monitoring for toxicity (Heparin, Nitro, Insulin, Cardizem)? @ -No Were any procedures done? @ -No Diagnosis/symptom? @ -Patellar fracture Acute, or Chronic, or Acute on Chronic? @ -Acute Uncomplicated (without systemic symptoms) or Complicated (systemic symptoms)? @ -Uncomplicated Side effects of treatment? @ -No Exacerbation, Progression, or Severe Exacerbation? @ -No Poses a threat to life or bodily function? How? (Chest pain, [place], [place], pneumonia, PE, COPD, DKA, ARF, appy, cholecystitis, CVA, Diverticulitis, Homicidal, Suicidal, threat to staff... and all critical care pts) @ -No Disposition Clinical Impression: Patellar fracture Disposition: HOME SELF-CARE Condition: Stable Instructions (If sedation given, give patient instructions): Patellar Fracture (ED) Additional Instructions: Please follow up with orthopedics. Return to the emergency department for new or worsening symptoms. Is patient prescribed a controlled substance at d/c from ED?: No Referrals: Víctor Salamanca MD [Primary Care Provider] - 1-2 days Jovanny Perry DO [Doctor of Osteopathic Medicine] - 1-2 days
--- NOTE | 2024-08-02 17:59 | XR ---
EXAMINATION TYPE: XR knee complete bilateral DATE OF EXAM: 08/02/2024 5:53 PM COMPARISON: None. CLINICAL INDICATION: Female, 74 years old with history of fall; [facility] TECHNIQUE: XR knee complete bilateral views submitted.. FINDINGS: Right knee: Nondisplaced fracture of the mid/superior left patella. Extensive vascular calcifications. Check depa rtmental degenerative osteoarthritis. Small suprapatellar joint effusion. No unexpected radiopaque fo reign body. Left knee: No acute fracture or dislocation. Extensive vascular calcifications. Tricompartment total degenerativ e facet arthritis. Moderate to large suprapatellar joint effusion. IMPRESSION: 1. Acute fracture involving the mid/superior patella with associated adjacent moderate to large supr apatellar left knee joint effusion. 2. No acute fracture or dislocation in the right knee. [facility], , 08/02/2024 5:57 PM
--- NOTE | 2024-08-02 18:30 | CT ---
EXAMINATION TYPE: CT brain cspine wo con DATE OF EXAM: 08/02/2024 5:59 PM COMPARISON: None. CLINICAL INDICATION: Female, 74 years old with history of fall; 2 Falls since Thursday, No LOC. On aspr in. Rt side facial bruisng and lip bruising. TECHNIQUE: Brain: Multiple axial CT images of the brain were obtained without IV contrast. Cspine: Axial CT images from the skull base to the inferior aspect of T2 we obtained without intraven ous contrast. Coronal and sagittal reformatted images were also reviewed. . CT DLP: Combined DLP of 1032.4 mGycm, Automated exposure control for dose reduction was used. FINDINGS: Brain: No acute cranial hemorrhage, midline shift or significant mass effect. Sizable extra axial fluid magdi ection. Ventricles and sulci are prominent compatible with generalized volume loss. Patchy periventri cular and subcortical white matter hypoattenuation likely reflecting chronic medical vascular ischemi c disease. Previous bilateral cataract lens extraction noted. 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 Basal cisterns are patent. No depressed calvarial fracture or large scalp hematoma. Paranas al sinuses and mastoid air cells are grossly patent. Cervical spine: Fracture: None. Osseous structures: Multilevel intervertebral disc space loss and anterior ossified formation. Vertebral alignment: Within normal limits. Spinal canal/Neural Foramina: Multilevel facet arthropathy/uncal vertebral hypertrophy causing degree s of neural foraminal narrowing. No high-grade spinal canal stenosis. Neck soft tissues: Prevertebral soft tissues are within normal limits. Other: The airway is patent. Right lung apex demonstrates focal region of nodular scarring/atelectasi s. IMPRESSION: 1. No acute intracranial process. 2. No acute fracture or traumatic subluxation of the cervical spine. [facility], , 08/02/2024 6:27 PM
--- NOTE | 2024-08-02 18:35 | CT ---
EXAMINATION TYPE: CT facial bones wo con DATE OF EXAM: 08/02/2024 5:59 PM COMPARISON: None.. CLINICAL INDICATION: Female, 74 years old with history of fall; [facility], 2 Falls since Thursday, No LOC. On asprin. Rt side facial bruisng and lip bruising. TECHNIQUE: Multiple unenhanced axial CT images were obtained of the facial bones soft tissue and bone windows. Coronal, axial and sagittal reformatted images were also provided in soft tissue and bone windows and submitted for interpretation. Additional 3-D reformatted images were obtained on a [employer] workstation. . CT DLP: Combined DLP of 1032.4 mGycm, Automated exposure control for dose reduction was used. FINDINGS: There is no evidence of fracture, subluxation, or dislocation. There is mild right-sided facial soft tissue swelling/edema. The orbital contents are unremarkable.The temporal-mandibular joints appear sy mmetric. The visualized portion of the paranasal sinuses demonstrated postsurgical changes and trace mucosal thickening along the floor the right maxillary sinus. IMPRESSION: No acute facial bone fracture or dislocation. [facility], , 08/02/2024 6:33 PM
[2024-08-02 19:50] VITALS: BP 163/82; PULSE 70; RESP 16; TEMP 98.5
== END 2024-08-02 19:50 | disposition home or self-care (01) ==
LOC: EC 16:35
DX: S82.002A Unspecified fracture of left patella, initial encounter for closed fracture (principal); S00.531A Contusion of lip, initial encounter; Z88.5 Allergy status to narcotic agent; Z88.8 Allergy status to other drugs, medicaments and biological substances; Z87.891 Personal history of nicotine dependence; Z95.5 Presence of coronary angioplasty implant and graft; W01.0XXA Fall on same level from slipping, tripping and stumbling without subsequent striking against object, initial encounter
CPT/HCPCS: 73562; 72125; 70486; 70450; 99284; L1830